=== PATIENT | female | born 1945 | race Caucasian/White ===

== ENCOUNTER → 2018-07-04 07:44 | Outpatient (CLI) | payer MEDICARE, OTHER, SELFPAY ==
--- NOTE | 2018-07-04 08:00 | US_ITS ---
US breast LT complete INDICATION: Left breast tenderness ORDERING PHYSICIAN: TARAN Brunson PATIENT AGE: 72 years COMPARISON: 09/23/2017 TECHNIQUE: Left breast ultrasound with axilla FINDINGS: There are a few dilated ducts in the retroareolar region and at 3:00. Small nodes are present in the axilla. A 4 mm cyst is present at 3:00. No suspicious solid lesions are evident. IMPRESSION: Mild ductal ectasia. Millimeters cyst at 3:00. Negative ultrasound does not exclude possibility of malignancy. Recommend mammogram for further evaluation. Patient's recent mammograms have all been at another institution and are unavailable for comparison at the time of exam BI-RADS Category: 0 Need Additional Imaging Evaluation RECOMMENDED FOLLOW-UP: IMM - IMMEDIATE FOLLOW-UP RECOMMENDED Negative ultrasound does not exclude the possibility of malignancy. Suggest mammography for further evaluation. (A letter has been sent to the patient regarding results of the study.)
== END ==
PROVIDERS: Family Provider Family Medicine; PCP Family Medicine; Visit Provider Physician Assistant
DX: N63.21 Unspecified lump in the left breast, upper outer quadrant
CPT/HCPCS: 76641

== ENCOUNTER → 2018-07-22 12:40 | Outpatient (CLI) | payer MEDICARE, OTHER, SELFPAY ==
--- NOTE | 2018-07-22 12:44 | MM_ITS ---
MM Dig mamm DX unilat LT CAD INDICATION: Left breast tenderness ORDERING PHYSICIAN: Amberly Rutledge MD PATIENT AGE: 72 years COMPARISON: 09/23/2017, 09/19/2016, 07/04/2018 TECHNIQUE: Left mammogram performed along with spot compression views of the left breast FINDINGS: There are scattered areas of asymmetric density most of which appear to compress out on spot compression views. Asymmetric density noted in the deep medial left breast and in the lateral left breast probably related to fibroglandular tissue which appears to compress out. No malignant appearing mass or malignant appearing microcalcification is evident. The areas of asymmetric density are likely related to asymmetric fibroglandular tissue There is an asymmetric density in the medial aspect of the left breast did appear to be present on previous exam of 09/19/2016 on the tomogram IMPRESSION: No malignant appearing mass or malignant appearing microcalcification. Probably benign findings BI-RADS Category: 3 Probably Benign Finding Short Term Follow-up RECOMMENDED FOLLOW-UP: 6M - 6 MONTH FOLLOW-UP (A letter has been sent to the patient regarding results of the study.)
== END ==
PROVIDERS: Family Provider Family Medicine; PCP Family Medicine; Visit Provider Family Medicine
DX: R92.8 Other abnormal and inconclusive findings on diagnostic imaging of breast (principal)
CPT/HCPCS: 77065

== ENCOUNTER 2019-04-16 11:36 | Outpatient (CLI) | payer MEDICARE, OTHER, SELFPAY ==
[2019-04-16 14:41] LABS: Alanine Aminotransferase 30 U/L (12-78); Albumin Level 3.7 gm/dL (3.4-5.0); Albumin/Globulin Ratio 1.3 (1.1-1.8); Alkaline Phosphatase 115 U/L (46-116); Anion Gap 16.3 mEq/L (5-15); Aspartate Amino Transferase 18 U/L (15-37); Bilirubin,Total 0.6 mg/dL (0.2-1.0); Blood Urea Nitrogen 9 mg/dL (7-18); Calcium 9.6 mg/dL (8.5-10.1); Carbon Dioxide 26 mmol/L (21.0-32.0); Chloride 101 mmol/L (98-107); Creatinine,Serum 0.56 mg/dL (0.55-1.02); Estimated Glomerular Filt Rate 106 ml/min (>60); GFR (African American) 128 ML/MIN (>60); Globulin 2.8 gm/dl (1.3-3.2); Glucose 87 mg/dL (74-106); Potassium 4.3 mmoL/L (3.5-5.1); Sodium 139 mmol/L (136-145); Thyroid Stimulating Hormone 1.82 uIU/ml (0.358-3.740); Total Protein,Serum 6.5 gm/dL (6.4-8.2)
[2019-04-16 15:10] VITALS: BP 126/95; PULSE 64; RESP 18; O2SAT 98
[2019-04-16 15:25] VITALS: BP 117/63; PULSE 60; RESP 18
[2019-04-19 17:22] LABS: Vitamin D 25 Hydroxy 57.4 ng/mL (30.0-100.0)
== END 2019-04-16 15:35 | disposition home or self-care (01) ==
PROVIDERS: PCP Family Medicine; Visit Provider Family Medicine
DX: E78.00 Pure hypercholesterolemia, unspecified (principal); M81.0 Age-related osteoporosis without current pathological fracture; E55.9 Vitamin D deficiency, unspecified
CPT/HCPCS: 80053; 82652; 84443; 96374; J3489

== ENCOUNTER → 2019-05-05 15:18 | Outpatient (POV) | payer MEDICARE, OTHER, SELFPAY | PROVIDERS: Visit Provider Dermatology | DX: Z00.00 Encounter for general adult medical examination without abnormal findings (principal) ==

== ENCOUNTER → 2020-04-22 08:39 | Outpatient (CLI) | payer MEDICARE, OTHER, SELFPAY ==
--- NOTE | 2020-04-22 08:44 | MM_ITS ---
PROCEDURE: MM DIG SCREENING MAMM BI W/CAD Digital Breast Tomosynthesis Included CLINICAL INDICATION: SCREENING There is a history of breast cancer patient's sister diagnosed at age 40. There has been a previous biopsy left breast for benign disease. COMPARISON: MY Digital Pancho Screen BILAT from 09/19/2016 MY Digital Screen BILAT from 09/23/2017 DXLT MM Dig mamm DX unilat LT CAD from 07/22/2018 TECHNIQUE: Standard CC and MLO images and 3D Tomosynthesis was obtained. R2 CAD reviewed. FINDINGS: Moderate diffuse fibroglandular densities are seen in both breast. There are benign-appearing calcifications in each breast. There are 2 mole markers right breast and a single mole marker left breast. There appear to be multiple tiny moles inner quadrant both breast near cleavage which were not marked with mole markers. There is a moderate-sized mole near the inframammary fold left breast which was marked on previous exams but is stable and unchanged in appearance there is no suspicious lesion in either breast and no suspicious microcalcifications. IMPRESSION: Moderate breast density with multiple moles on each breast and no suspicious lesions seen BI-RAD Category: 2 Benign Finding(s) FOLLOW-UP: 1YR 1 Year Follow-up (A letter has been sent to the patient regarding results of the study.) Dictated by: Dr. Eber Loving MD 04/22/2020 10:[address] Eber Loving MD in [place] 04/22/2020 10:55
--- NOTE | 2020-04-22 08:45 | XR_ITS ---
PROCEDURE: XR DEXA AXIAL SKELETON CLINICAL HISTORY: OSTEOPROSIS COMPARISON: No exams were available for comparison FINDINGS: The average BMD lumbar spine L1 through L4 is 1.087 grams/centimeter squared and the T-score 0.4. Right hip: The total BMD is 0.769 grams/centimeter squared with a T-score -1.4 and the right femoral neck is 0.623 grams/centimeter sq with a T-score -2.0. Left hip: The total BMD is 0.791 grams/centimeter sq with a T-score -1.2 and the left femoral neck is 0.691 grams/centimeter sq with a T-score -1.4. IMPRESSION: Normal T-score for the lumbar spine, findings in the mild to moderate osteopenia range for both hips. Consider follow-up study in approximately 2 years Dictated by: Dr. Eber Loving MD 04/22/2020 14:[address] Eber Loving MD in [place] 04/22/2020 14:26
== END ==
PROVIDERS: PCP Family Medicine; Visit Provider Family Medicine
DX: Z12.31 Encounter for screening mammogram for malignant neoplasm of breast (principal)
CPT/HCPCS: 77063; 77067; 77080

== ENCOUNTER → 2020-05-12 10:08 | Outpatient (CLI) | payer MEDICARE, OTHER, SELFPAY ==
--- NOTE | 2020-05-12 10:12 | XR_ITS ---
PROCEDURE: XR CHEST 2V CLINICAL HISTORY: CHEST PAIN COMPARISON: CXR CHEST(2 VIEWS-NOT PORTABLE) from 03/12/2016 CXR1 CHEST-PORTABLE from 05/22/2017 FINDINGS: The cardiomediastinal silhouette and pulmonary vascularity are within normal limits. The lungs are clear without infiltrates, suspicious nodules, or pleural effusions. No acute bony abnormalities. Again noted are surgical clips at the gastro esophageal junction. There minor degenerate changes of mid and lower thoracic spine. IMPRESSION: No acute findings. Dictated by: Dr. Eber Loving MD 05/12/2020 11:[address] Eber Loving MD in [place] 05/12/2020 11:28
== END ==
PROVIDERS: PCP Family Medicine; Visit Provider Family Medicine
DX: R07.9 Chest pain, unspecified (principal)
CPT/HCPCS: 71046

== ENCOUNTER 2020-06-15 09:48 | Outpatient (CLI) | payer MEDICARE, OTHER, SELFPAY ==
[2020-06-15 09:50] VITALS: BMI 29.2
[2020-06-15 10:15] LABS: Albumin Level 4.3 g/dl (3.5-5.0)
[2020-06-15 10:17] LABS: Creatinine Clearance Estimated 57 mL/min (50-200); Estimated Glomerular Filt Rate 98 ml/min (>60); GFR (African American) 118 ML/MIN (>60)
[2020-06-15 10:18] LABS: Calcium 10.1 mg/dl (8.4-10.2)
[2020-06-15 10:30] VITALS: BP 140/68; PULSE 72; RESP 18; O2SAT 98
[2020-06-15 10:50] VITALS: BP 135/65; PULSE 70; RESP 18
== END 2020-06-15 10:50 | disposition home or self-care (01) ==
LOC: INF 09:48
PROVIDERS: Visit Provider Family Medicine
DX: M81.0 Age-related osteoporosis without current pathological fracture (principal)
CPT/HCPCS: 82040; 82310; 82565; 96374; J3489

== ENCOUNTER → 2020-06-28 11:18 | Outpatient (POV) | payer MEDICARE, OTHER, SELFPAY | PROVIDERS: PCP Family Medicine; Visit Provider Dermatology | DX: Z00.00 Encounter for general adult medical examination without abnormal findings (principal) ==

== ENCOUNTER → 2020-06-29 14:09 | Outpatient (CLI) | payer MEDICARE, OTHER, SELFPAY ==
[2020-06-29 15:11] LABS: Basophils % 0.4 % (0.1-2.0); Eosinophils # 0.2 K/mm3 (0.0-0.4); Eosinophils % 2.5 % (0.1-12.0); Hematocrit 42.9 % (37.0-47.0); Lymphocytes % 45.4 % (10-50); Mean Corpuscular HGB Conc 32.7 g/dL (31.8-35.4); Mean Corpuscular Hemoglobin 29.5 pg (27.0-31.2); Mean Corpuscular Volume 90.3 fl (81-99); Mean Platelet Volume 7.9 fl (7.4-10.4); Monocytes # 0.4 K/mm3 (0.1-1.0); Monocytes % 5.5 % (1.7-9.3); Neutrophils # 3.1 K/mm3 (1.8-7.8); Neutrophils % 46.1 % (37.0-80.0); Platelet Count 189 K/mm3 (142-424); Red Blood Count 4.76 M/mm3 (4.20-5.40); Red Cell Distribution Width 13.3 % (11.5-17.5); White Blood Count 6.7 K/mm3 (4.8-10.8)
== END ==
PROVIDERS: PCP Family Medicine; Visit Provider Nurse Practitioner Family
DX: Z20.828 Contact with and (suspected) exposure to other viral communicable diseases (principal)
CPT/HCPCS: 36415; 85025; U0003

== ENCOUNTER 2020-10-26 15:23 | Emergency (ER) | payer MEDICARE, OTHER, SELFPAY ==
[2020-10-26 15:30] VITALS: BP 143/80; PULSE 80; RESP 17; TEMP 36.5; O2SAT 98; BMI 28.9
--- NOTE | 2020-10-26 15:33 | XR_ITS ---
PROCEDURE: XR RIBS RT MIN 3V W CXR1V CLINICAL INDICATION: rib fracture Right-sided chest and rib pain following injury COMPARISON: CR CXR CHEST(2 VIEWS-NOT PORTABLE) from 03/12/2016 CR CXR1 CHEST-PORTABLE from 05/22/2017 CR XR CHEST 2V from 05/12/2020 FINDINGS: There is a mildly displaced fracture involving the right 8th and 9th ribs. There is a small amount of overlying subcutaneous emphysema. No obvious pneumothorax. IMPRESSION: Mildly displaced right 8th and 9th rib fractures with overlying subcutaneous emphysema. Dictated by: Jonathan Tapia MD 10/26/2020 17:38 Jonathan Tapia MD in [place] 10/26/2020 17:38
--- NOTE | 2020-10-26 15:35 | HMH.EDFALL ---
ED Disposition Clinical Impression: Rib fracture Qualifiers: Encounter type: initial encounter Disposition: Home, Self-Care Condition on Discharge: Good Additional Instructions: Turn to the emergency department for worsening chest pain shortness of air difficulty breathing or any other concerns within the next 8 hours take incentive spirometry as instructed and pain medicine as instructed follow-up with your primary care physician within the next few days Prescriptions: Hydrocodone/Acetaminophen [[place] 5-325 Tablet] 1 each PO Q6 PRN 3 Days #12 tablet PRN Reason: Moderate Pain Transmission Status: Received by [id number] Referrals: Rashi Thomas MD [Primary Care Provider] - - Critical Care Critical Care Time: No Attestation: On , the high probability of a clinically significant, sudden or life threatening deterioration of the following system(s) required my full and direct attention, intervention and personal management. The time I documented below is in addition to time spent performing reported procedures but includes the following listed in this critical care notation. Medical Decision Making - Medical Records Medical records reviewed: Yes: I reviewed the patient's medical records. - Morgan Inquiry Pt receiving controlled substance: Yes Morgan was queried for this patient: No Reason not queried -: Morgan login issues Risks and benefits of using a controlled substance: were discussed with pt by me Vital Signs: 10/26/20 15:30 10/26/20 15:54 Temperature 97.7 F Temperature Source Oral Pulse Rate [Right Radial] 80 66 Respiratory Rate 17 20 Blood Pressure [Right Arm] 143/80 H 146/75 H Blood Pressure Mean [Right Arm] 101 98 Blood Pressure Source [Right Arm] Automatic Cuff Blood Pressure Position [Right Arm] Sitting 02 Sat by Pulse Oximetry 98 93 L Oxygen Delivery Method Room Air Room Air Orders (Tests/Meds): ED MEDICATIONS Discontinued Medications Generic Name Dose Route Start Last Admin Trade Name Freq PRN Reason Stop Dose Admin Hydrocodone Bitart/Acetaminophen 1 tab 10/26/20 15:40 10/26/20 15:48 Hydrocodone/Apap 5/325 Mg Tablet PO 10/26/20 15:41 1 tab ONCE ONE Administration ORDERS Category Date Time Status XR ribs RT min 3V w CXR1V Stat Exams 10/26/20 15:33 Taken Medical Decision Narrative: Patient with traumatic fall and right-sided chest pain. She is in no acute distress nontoxic-appearing sitting comfortably in the bed. Her vital signs were normal 100% oxygen saturation and her lungs were clear to auscultation bilaterally. I was not concerned for large for moderate-sized pneumothorax. Chest x-ray reviewed and she does have 2 rib fractures on the right side. On repeat exam she persisted being normal oxygen and no abdominal tenderness on repeat exam. Given pain medicine and incentive spirometer and strict return precautions Fall HPI - General Chief Complaint: Fall Stated Complaint: Fall 1500 back and trouble breathing Time Seen by Provider: 10/26/20 15:30 Mode of Arrival: Ambulatory Limitations: No Limitations Description of Symptoms (Recalled from ER Triage Doc. by RN): ground level fall in her basement while reaching up for a high object patient fell backward and hit her right ribs on some boxes. -loc. denies neck or back pain - History of Present Illness HPI Narrative: 74-year-old female had mechanical fall as she was in her basement and fell onto her right side while standing. She denies head injury or loss of consciousness no neck pain no numbness weakness or tingling arms or legs she does have right-sided chest wall pain when she takes a deep breath. She is not on blood thinners the pain is worse with movement and breathing MD complaint: fall Loss of consciousness: none Context: tripped/slipped Location of injury: chest Severity scale (1-10): 5 Quality: dull Associated symptoms (after fall): chest pain - Related Data Home Medica
--- NOTE | 2020-10-26 15:51 | PC.NURSE ---
pt going to xray
[2020-10-26 15:54] VITALS: BP 146/75; PULSE 66; RESP 20; O2SAT 93
[2020-10-26 17:24] VITALS: BP 140/69; PULSE 75; RESP 18; TEMP 36.5; O2SAT 99
== END 2020-10-26 17:24 | disposition home or self-care (01) ==
PROVIDERS: Emergency Provider Emergency Medicine; PCP Family Medicine
DX: S22.41XA Multiple fractures of ribs, right side, initial encounter for closed fracture; W01.0XXA Fall on same level from slipping, tripping and stumbling without subsequent striking against object, initial encounter; Y92.019 Unspecified place in single-family (private) house as the place of occurrence of the external cause; Z87.891 Personal history of nicotine dependence
CPT/HCPCS: 71101; 99282

== ENCOUNTER 2020-10-30 14:32 | Emergency (ER) | payer MEDICARE, OTHER, SELFPAY ==
[2020-10-30] VITALS (8 sets, daily range): BP systolic 157–226; BP diastolic 76–94; PULSE 71–85; RESP 17–22; TEMP 36.7–37; O2SAT 85–98; BMI 29.2
--- NOTE | 2020-10-30 14:49 | CT_ITS ---
PROCEDURE: CT ABDOMEN PELVIS W CON CLINICAL INDICATION: abd pain, constipation posttraumatic pain, recent fall with injury and pain COMPARISON: No exams were available for comparison TECHNIQUE: IV Contrast: 75ML Isovue 370 Oral Contrast None Axial images obtained with sagittal and coronal reformats. All CT scans at the facility use one or more dose reduction, viz: automated exposure control, ma/kV adjustment per patient size (including targeted exams where dose is matched to indication, i.e. head), or iterative reconstruction technique. FINDINGS: There are displaced fractures of the right eighth and 9th ribs with nondisplaced fracture of the right 10th and 7th rib with diffuse subcutaneous emphysema on the right with right-sided hemothorax, small pneumothorax, and large flank contusion on the right. This is described in the subsequent chest CT. There is right lower lobe atelectasis No evidence of hepatic laceration. The gallbladder is distended with at least 1 small gallstone noted. The spleen is unremarkable. 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 Adrenal glands are unremarkable as is the pancreas. There is mild prominence of the renal collecting system on both sides. Urinary bladder is distended. Air-fluid levels are present in both large and small bowel with a moderate amount of retained colonic feces noted. Small bowel loops are mildly distended with a few scattered air-fluid levels. The appendix is not clearly delineated. No evidence of appendicitis. IMPRESSION: 1. Multiple right-sided rib fractures with right-sided hemothorax and pneumothorax, right flank contusion and right lower lobe atelectatic change 2. Multiple fluid-filled loops of small bowel which are mildly dilated may represent ileus or obstruction. 3. Constipation 4. Cholelithiasis with distended gallbladder Dictated by: Jonathan Tapia MD 10/31/2020 06:53 Jonathan Tapia MD in [place] 10/31/2020 06:53
[2020-10-30 14:57] LABS: Microscopic, Urine URINE MICROSCOPIC (MICROSCOPIC)
[2020-10-30 15:01] LABS: Appearance,Urine CLEAR (Clear); Bilirubin,Urine Negative (Negative); Blood, Urine Negative (Negative); Color,Urine YELLOW (Yellow); Glucose,Urine (UA) Negative (Negative); Ketones,Urine Negative (Negative); Leukocyte Esterase,Urine Negative (Negative); Nitrate,Urine Negative (Negative); Protein,Urine Negative (Negative); Urobilinogen,Urine 0.2 EU/dl (0.2)
[2020-10-30 15:02] LABS: Basophils % 0.4 % (0.1-2.0); Eosinophils # 0.2 K/mm3 (0.0-0.4); Eosinophils % 1.7 % (0.1-12.0); Hematocrit 40.6 % (37.0-47.0); Hemoglobin 12.6 g/dL (12.2-16.2); Lymphocytes # 2.5 K/mm3 (0.7-4.5); Lymphocytes % 27.1 % (10-50); Mean Corpuscular Hemoglobin 28.5 pg (27.0-31.2); Mean Corpuscular Volume 91.9 fl (81-99); Mean Platelet Volume 7.6 fl (7.4-10.4); Monocytes # 0.5 K/mm3 (0.1-1.0); Monocytes % 5.4 % (1.7-9.3); Neutrophils # 6.1 K/mm3 (1.8-7.8); Neutrophils % 65.3 % (37.0-80.0); Platelet Count 215 K/mm3 (142-424); Red Blood Count 4.42 M/mm3 (4.20-5.40); Red Cell Distribution Width 13.1 % (11.5-17.5); White Blood Count 9.3 K/mm3 (4.8-10.8)
[2020-10-30 15:06] LABS: Chloride 97 mmol/L (98-107); Potassium 4.2 mmoL/L (3.5-5.1); Sodium 134 mmol/L (136-145)
[2020-10-30 15:08] LABS: Amylase 55 U/L (30-110); Blood Urea Nitrogen 9 mg/dl (7-17)
[2020-10-30 15:09] LABS: Alanine Aminotransferase 48 U/L (12-78); Albumin Level 4.4 g/dl (3.5-5.0); Albumin/Globulin Ratio 1.5 (1.1-1.8); Alkaline Phosphatase 110 U/L (38-126); Anion Gap 12.2 mEq/L (5-15); Aspartate Amino Transferase 63 U/L (14-36); Bilirubin,Total 0.7 mg/dl (0.2-1.3); Calcium 10.2 mg/dl (8.4-10.2); Carbon Dioxide 29 mmol/L (22.0-30.0); Creatinine Clearance Estimated 57 mL/min (50-200); Estimated Glomerular Filt Rate 98 ml/min (>60); GFR (African American) 118 ML/MIN (>60); Globulin 2.9 g/dL (1.3-3.2); Glucose 117 mg/dl (74-100); Lipase 115 U/L (23-300); Total Protein,Serum 7.3 g/dl (6.3-8.2)
[2020-10-30 15:27] LABS: Amorphous Sediment,Urine 1+ /lpf; Coarse Granular Casts,Urine Occasional #/lpf (0)
--- NOTE | 2020-10-30 15:49 | PC.NURSE ---
Patient going to radiology
--- NOTE | 2020-10-30 16:28 | HMH.EDGENADL ---
ED Disposition Clinical Impression: Hemothorax, Ileus Right rib fracture Qualifiers: Encounter type: initial encounter Rib fracture type: multiple ribs Fracture type: closed Qualified Code(s): S22.41XA - Multiple fractures of ribs, right side, initial encounter for closed fracture Pneumothorax Qualifiers: Pneumothorax type: traumatic Encounter type: initial encounter Qualified Code(s): S27.0XXA - Traumatic pneumothorax, initial encounter Disposition: Home, Self-Care Condition on Discharge: Fair Instructions: DI for Pneumothorax, DI for Rib Fracture, DI for Ileus Additional Instructions: Continue using your incentive spirometer. Continue using your normal bowel regimen of MiraLAX and Metamucil. Over the counter Gas-X. [place] diet. Ambulate as much as you can tolerate daily. Ibuprofen or Tylenol for pain. May use your prescription [place] for severe pain, but ibuprofen or Tylenol preferred if possible. Follow-up with Dr. Bee in his office in 2 to 3 days. Call for appointment. Return to the emergency room if severe pain, abdominal distention, vomiting, or shortness of breath. Referrals: Rashi Thomas MD [Primary Care Provider] - - Critical Care Critical Care Time: No Attestation: On 10/30/20, the high probability of a clinically significant, sudden or life threatening deterioration of the following system(s) required my full and direct attention, intervention and personal management. The time I documented below is in addition to time spent performing reported procedures but includes the following listed in this critical care notation. Medical Decision Making - Medical Records Medical records reviewed: Yes: I reviewed the patient's medical records. MR Comment: Reviewed emergency department visit and chest x-ray/rib x-ray from 10/26/2020 showing right eighth and ninth rib fractures and subcutaneous emphysema. - Morgan Inquiry Pt receiving controlled substance: No Vital Signs: 10/30/20 14:44 10/30/20 15:09 10/30/20 15:30 Temperature 98.6 F Temperature Source Oral Pulse Rate [Right Radial] 85 84 81 Respiratory Rate 17 Blood Pressure [Right Arm] 190/87 H 161/86 H 157/76 H Blood Pressure Mean [Right Arm] 121 111 103 Blood Pressure Source [Right Arm] Automatic Cuff Automatic Cuff Blood Pressure Position [Right Arm] Supine Sitting 02 Sat by Pulse Oximetry 98 96 85 L Oxygen Delivery Method Room Air Room Air 10/30/20 16:48 10/30/20 17:00 10/30/20 18:13 Temperature Temperature Source Pulse Rate [Right Radial] 79 75 79 Respiratory Rate 22 Blood Pressure [Right Arm] 166/78 H 162/84 H 157/80 H Blood Pressure Mean [Right Arm] 107 110 105 Blood Pressure Source [Right Arm] Automatic Cuff Automatic Cuff Automatic Cuff Blood Pressure Position [Right Arm] Supine Sitting Sitting 02 Sat by Pulse Oximetry 96 97 94 L Oxygen Delivery Method Room Air 10/30/20 18:30 Temperature Temperature Source Pulse Rate [Right Radial] 74 Respiratory Rate Blood Pressure [Right Arm] 226/94 H Blood Pressure Mean [Right Arm] 138 Blood Pressure Source [Right Arm] Blood Pressure Position [Right Arm] Sitting 02 Sat by Pulse Oximetry 96 Oxygen Delivery Method - Lab Data Lab Results 10/30/20 14:45: Urine Color Yellow, Urine Appearance Clear, Urine pH 7.0, Ur Specific [place] 1.010, Urine Protein Negative, Urine Glucose (UA) Negative, Urine Ketones Negative, Urine Blood Negative, Urine Nitrate Negative, Urine Bilirubin Negative, Urine Urobilinogen 0.2, Ur Leukocyte Esterase Negative, Urine RBC None, Urine WBC None, Ur Squamous Epith Cells 3-5, Amorphous Sediment 1+, Urine Bacteria None, Coarse Granular Casts Occasional 10/30/20 14:55: WBC 9.3, RBC 4.42, Hgb 12.6, Hct 40.6, MCV 91.9, MCH 28.5, MCHC 31.0 L, RDW 13.1, Plt Count 215, MPV 7.6, Neut % (Auto) 65.3, Lymph % (Auto) 27.1, [place] % (Auto) 5.4, Eos % (Auto) 1.7, Baso % (Auto) 0.4, Neut # (Auto) 6.1, Lymph # (Auto) 2.5, [place] # (Auto) 0.5, Eos # (Auto)
--- NOTE | 2020-10-30 16:45 | PC.NURSE ---
Dr Lucio speaking to [facility] at this time
--- NOTE | 2020-10-30 17:40 | CT_ITS ---
PROCEDURE: CT ANGIO CHEST CLINCIAL INDICATION: trauma Blunt trauma with injury and pain, contusion/abrasion or hematoma following injury, right-sided rib injury with pain COMPARISON: CT CT ABDOMEN PELVIS W CON from 10/30/2020 TECHNIQUE: IV Contrast: 70ML Isovue 370 Axial images obtained with sagittal and coronal reformats. All CT scans at the facility use one or more dose reduction, viz: automated exposure control, ma/kV adjustment per patient size (including targeted exams where dose is matched to indication, i.e. head), or iterative reconstruction technique. FINDINGS: No mediastinal or hilar mass. No evidence of aortic aneurysm or dissection. There are multiple right-sided rib fractures involving the right 7th 8th 9th and 10th ribs. The 8th and 9th rib fractures are displaced with some overlap of the fracture fragments. There is a small right-sided pneumothorax with atelectatic changes in the lung bases. Small right pleural effusion is evident. The the effusion is hyperdense and may be due to hemothorax. There is diffuse subcutaneous emphysema on the right. There may be a small area of contusion versus atelectatic change in the right middle lobe. Diffuse subcutaneous emphysema tracks down the right flank with contusion of the right lower lateral rib area and flank. IMPRESSION: 1. Large right-sided flank contusion with fractures of the right 7th 8th 9th and 10th ribs with displacement and overlap of the 9th and 10th rib fracture. 2. Small right-sided hemothorax with small pneumothorax and right-sided atelectasis with possible area of contusion in the right middle lobe versus atelectatic change. 3. Diffuse subcutaneous emphysema Dictated by: Jonathan Tapia MD 10/31/2020 06:47 Jonathan Tapia MD in [place] 10/31/2020 06:47
--- NOTE | 2020-10-30 18:22 | PC.NURSE ---
Dr mijares speaking with ad
--- NOTE | 2020-10-30 18:30 | PC.NURSE ---
Dr Lucio speaking with Dr Bee
== END 2020-10-30 19:31 | disposition home or self-care (01) ==
PROVIDERS: Emergency Provider Emergency Medicine; PCP Family Medicine
DX: K56.7 Ileus, unspecified (principal); S22.41XD Multiple fractures of ribs, right side, subsequent encounter for fracture with routine healing; S27.0XXD Traumatic pneumothorax, subsequent encounter; J43.9 Emphysema, unspecified; J94.2 Hemothorax
CPT/HCPCS: 71275; 74177; 80053; 81001; 82150; 83690; 85025; 96365; 99284; Q9967

== ENCOUNTER → 2020-11-01 14:36 | Outpatient (CLI) | payer MEDICARE, OTHER, SELFPAY ==
--- NOTE | 2020-11-01 14:41 | XR_ITS ---
PROCEDURE: XR CHEST 2V CLINICAL HISTORY: CLOSED FX OF MULTIPLE RIBS OF RT SIDE, TRAUMATIC PNEUMOTHORA Follow-up fractures COMPARISON: CR XR RIBS RT MIN 3V W CXR1V from 10/26/[address] ANGIO CHEST from 10/30/2020 FINDINGS: The cardiomediastinal silhouette and pulmonary vascularity are within normal limits. There are multiple right-sided rib fractures from the 7th to 10th ribs. These are much better demonstrated on the previous CT scan. The pneumothorax does appear smaller. There is a small right-sided effusion. Displaced right 8th rib fracture is noted. Other rib fractures are present but not well delineated on this exam. Surgical clips are present in the left upper quadrant. There is a small amount of subcutaneous emphysema on the right. There may be trace left effusion.. IMPRESSION: Tiny right apical pneumothorax with right-sided rib fractures as previously described and trace right-sided effusion. Dictated by: Jonathan Tapia 11/01/2020 15:41 Jonathan Tapia in [place] 11/01/2020 15:41
== END ==
PROVIDERS: PCP Family Medicine; Visit Provider Family Medicine
DX: S22.41XA Multiple fractures of ribs, right side, initial encounter for closed fracture (principal); S27.0XXA Traumatic pneumothorax, initial encounter
CPT/HCPCS: 71046

== ENCOUNTER → 2021-05-23 09:39 | Outpatient (CLI) | payer MEDICARE, OTHER, SELFPAY ==
--- NOTE | 2021-05-23 09:51 | MM_ITS ---
PROCEDURE INFORMATION: Exam: MG Screening 3D Mammography Exam date and time: 05/23/2021 9:51 AM Age: 75 years old Clinical indication: Encounter for screening mammogram for malignant neoplasm of breast TECHNIQUE: Imaging protocol: Screening tomosynthesis and 2D mammography including computer-aided detection (CAD) when performed. COMPARISON: 1. MG MM DIG SCREENING MAMM BI W/CAD 04/22/2020 8:58 AM 2. MG DXLT MM Dig mamm DX unilat LT CAD 07/22/2018 1:10 PM FINDINGS: MAMMOGRAPHY: Breast composition: The breast tissue is composed of scattered areas of fibroglandular density. Mass: None. Architectural distortion: None. Calcifications: No suspicious calcifications. Asymmetric density: None. Skin thickening: None. Axillary adenopathy: None. IMPRESSION: No mammographic evidence of malignancy. Annual screening is recommended unless otherwise clinically indicated. ASSESSMENT: BI-RADS Category 1: Negative
== END ==
PROVIDERS: PCP Family Medicine; Visit Provider Family Medicine
DX: Z12.31 Encounter for screening mammogram for malignant neoplasm of breast (principal)
CPT/HCPCS: 77063; 77067

== ENCOUNTER 2021-06-20 09:50 | Outpatient (CLI) | payer MEDICARE, OTHER, SELFPAY ==
[2021-06-20 09:56] VITALS: BMI 30.2
[2021-06-20 10:35] LABS: Albumin Level 4.3 g/dl (3.5-5.0)
[2021-06-20 10:37] LABS: Calcium 9.4 mg/dl (8.4-10.2); Creatinine Clearance Estimated 57 mL/min (50-200); Estimated Glomerular Filt Rate 97 ml/min (>60); GFR (African American) 118 ML/MIN (>60)
[2021-06-20 10:57] VITALS: BP 167/67; PULSE 75; RESP 18; TEMP 35.8; O2SAT 97
[2021-06-20 11:15] VITALS: BP 157/79; PULSE 681; RESP 18
== END 2021-06-20 11:20 | disposition home or self-care (01) ==
LOC: INF 09:55
PROVIDERS: Visit Provider Family Medicine
DX: M81.0 Age-related osteoporosis without current pathological fracture (principal)
CPT/HCPCS: 82040; 82310; 82565; 96374; J3489

== ENCOUNTER 2021-07-03 09:12 | Emergency (ER) | payer MEDICARE, OTHER, SELFPAY ==
--- NOTE | 2021-07-03 10:29 | HMH.EDUTC ---
[facility] [place] Clinical Impression: Bronchitis, Viral syndrome Sinusitis Qualifiers: Sinusitis location: unspecified location Chronicity: acute Recurrence: non-recurrent Qualified Code(s): J01.90 - Acute sinusitis, unspecified Disposition: Home, Self-Care Condition on Discharge: Good Instructions: DI for Sinusitis, DI for Acute Bronchitis Additional Instructions: Drink plenty of fluids. Take tylenol for pain or fever. Take the medications as directed. Follow up with your regular doctor. GO TO THE ER FOR ANY WORSENING SYMPTOMS Throw your tooth brush away and get a new one. Quarantine until you know the results of your covid-19 test. If it is positive, the health department should call you and give you further instructions about your length of quarantine and other thing. Prescriptions: guaiFENesin [Mucinex 600mg tablet] 1 - 2 tab PO BIDP PRN #30 tab.er.12h PRN Reason: Congestion Transmission Status: [email or web address] Benzonatate [Tessalon Perle 100mg Cap] 100 mg PO TIDP PRN #30 cap PRN Reason: Cough Transmission Status: Received by [email or web address] Azithromycin [Z-Jey 250mg Tab*] 250 mg PO UD DOSE PK #6 tab Transmission Status: Re[email or web address] Referrals: Rashi Thomas MD [Primary Care Provider] - Time of Disposition: 11:06 Medical Decision Making - Medical Records Medical records reviewed: No: I reviewed the patient's medical records. - Morgan Inquiry Pt receiving controlled substance: No Vital Signs: 07/03/21 10:45 07/03/21 11:35 Temperature 98.6 F 98.5 F Temperature Source Oral Pulse Rate 93 H Pulse Rate [Left] 96 H Respiratory Rate 20 20 Blood Pressure 000/00 L Blood Pressure [Right Arm] 161/82 H Blood Pressure Mean [Right Arm] 108 02 Sat by Pulse Oximetry 99 - Lab Data Lab results reviewed: Yes: I reviewed the patient's lab results. Lab Results 07/03/21 10:55: Strep Scn Rapid Clinic Negative Orders (Tests/Meds): ORDERS Category Date Time Status Covid-19 Nasal PCR ([facility]) Routine Lab 07/03/21 10:42 Received Strep Screen Confirmation Stat Micro 07/03/21 10:55 Received [facility] [place] HPI - General Stated complaint: cough, ear ache sore throat headache Time Seen by Provider: 07/03/21 10:29 - History of Present Illness Provider Complaint: She states that for the past 2 days she has been having left ear pain, cough, sore throat and generally feeling bad. She denies any chest pain. She has been vaccinated against covid. - Related Data Home Medications Medication Instructions Recorded Confirmed atorvastatin 40 mg tablet 40 mg PO DAILY PRN 10/25/18 04/16/19 Aspirin [Aspir 81] 81 mg PO DAILY 04/16/19 04/16/19 Trazodone HCl 50 mg PO HS 04/16/19 04/16/19 Previous Rx's Medication Instructions Recorded [id number] 10 ml PO Q4-6H PRN #240 ml 10/25/18 2 mg-30 mg-10 mg/5 mL oral syrup Azithromycin [Z-Jey 250mg Tab*] 250 mg PO UD DOSE PK #6 tab 02/24/20 Benzonatate [Tessalon Perle 100mg 100 mg PO TIDP PRN #30 cap 02/24/20 Cap] methylPREDNISolone [Medrol] 4 mg PO DIRECTED 6 Days #21 02/24/20 tab.ds.pk Hydrocodone/Acetaminophen [[place] 1 each PO Q6 PRN 3 Days #12 tab 10/26/20 5-325 Tablet] Hydrocod/Acet 5/325 mg [[place] 1 tab PO Q6HP PRN #20 tab 11/01/20 5/325mg tablet] Azithromycin [Z-Jey 250mg Tab*] 250 mg PO UD DOSE PK #6 tab 07/03/21 Benzonatate [Tessalon Perle 100mg 100 mg PO TIDP PRN #30 cap 07/03/21 Cap] guaiFENesin [Mucinex 600mg tablet] 1 - 2 tab PO BIDP PRN #30 07/03/21 tab.er.12h Allergies Allergy/AdvReac Type Severity Reaction Status Date / Time No Known Allergies Allergy Verified 10/30/20 14:48 [facility] History - Hepatitis A Screen Attestation statement:: This patient has been screened for Hepatitis A risk factors. I have reviewed the patient's past medical history: Yes Medical History: Denies:: Diabetes Mellitus Type 1, Diabetes Milagros
[2021-07-03 10:45] VITALS: BP 161/82; PULSE 96; RESP 20; TEMP 37; O2SAT 99; BMI 30.2
[2021-07-03 11:07] LABS: UTC Strep Screen (Rapid) Negative (Negative)
[2021-07-03 11:35] VITALS: BP 000/00; PULSE 93; RESP 20; TEMP 36.9
== END 2021-07-03 11:35 | disposition home or self-care (01) ==
PROVIDERS: Emergency Provider Nurse Practitioner Family; PCP Family Medicine
DX: J01.90 Acute sinusitis, unspecified (principal); B34.9 Viral infection, unspecified
CPT/HCPCS: 87880; 99203; G0463; U0003

== ENCOUNTER → 2021-07-12 14:54 | Outpatient (CLI) | payer MEDICARE, OTHER, SELFPAY ==
--- NOTE | 2021-07-12 15:03 | XR_ITS ---
PROCEDURE: XR CHEST 2V CLINICAL HISTORY: COUGH Cough COMPARISON: CR XR CHEST 2V from 05/12/2020 CR XR RIBS RT MIN 3V W CXR1V from 10/26/[address] ANGIO CHEST from 10/30/2020 CR XR CHEST 2V from 11/01/2020 FINDINGS: The cardiomediastinal silhouette and pulmonary vascularity are within normal limits. The lungs are clear without infiltrates, suspicious nodules, or pleural effusions. There are old right-sided rib fractures. Surgical clips are present in the left upper quadrant. IMPRESSION: No acute findings. Dictated by: Jonathan Tapia MD 07/12/2021 15:33 Jonathan Tapia MD in [place] 07/12/2021 15:33
== END ==
PROVIDERS: PCP Family Medicine; Visit Provider Family Medicine
DX: R05 Cough (principal)
CPT/HCPCS: 71046

== ENCOUNTER → 2021-11-07 07:47 | Outpatient (CLI) | payer MEDICARE, OTHER, SELFPAY ==
[2021-11-07 08:41] LABS: Alanine Aminotransferase 19 U/L (12-78); Albumin Level 4.2 g/dl (3.5-5.0); Albumin/Globulin Ratio 1.7 (1.1-1.8); Alkaline Phosphatase 100 U/L (38-126); Anion Gap 10.3 mEq/L (5-15); Aspartate Amino Transferase 27 U/L (14-36); Bilirubin,Total 0.5 mg/dl (0.2-1.3); Blood Urea Nitrogen 17 mg/dl (7-17); Carbon Dioxide 29 mmol/L (22.0-30.0); Chloride 103 mmol/L (98-107); Chol/HDL Ratio 1.9 (1-3.5); Cholesterol 183 mg/dl (140-200); Estimated Glomerular Filt Rate 82 ml/min (>60); GFR (African American) 99 ML/MIN (>60); Globulin 2.5 g/dL (1.3-3.2); Glucose 114 mg/dl (74-100); HDL Cholesterol 94 mg/dl (40-60); Potassium 4.3 mmoL/L (3.5-5.1); Sodium 138 mmol/L (136-145); Total Protein,Serum 6.7 g/dl (6.3-8.2); Triglycerides 53 mg/dl (30-150); VLDL Cholesterol 11 mg/dL (0-40)
[2021-11-07 08:52] LABS: Direct LDL Cholesterol 73.92 mg/dL (100-129)
[2021-11-07 08:58] LABS: 25-OH Vitamin D, Total 36.6 ng/mL (30-100)
[2021-11-07 09:12] LABS: Thyroid Stimulating Hormone 1.89 uIU/mL (0.465-4.68)
[2021-11-07 09:30] LABS: Vitamin B12 760 pg/mL (239-931)
== END ==
PROVIDERS: Visit Provider Family Medicine
DX: E78.00 Pure hypercholesterolemia, unspecified (principal); E53.8 Deficiency of other specified B group vitamins; E55.9 Vitamin D deficiency, unspecified
CPT/HCPCS: 36415; 80053; 80061; 82306; 82607; 84443

== ENCOUNTER → 2022-04-17 10:09 | Outpatient (POV) | payer MEDICARE, OTHER, SELFPAY | PROVIDERS: Visit Provider Dermatology | DX: Z00.00 Encounter for general adult medical examination without abnormal findings (principal) ==

== ENCOUNTER → 2022-05-21 13:12 | Outpatient (CLI) | payer MEDICARE, OTHER, SELFPAY ==
--- NOTE | 2022-05-21 13:16 | MM_ITS ---
PROCEDURE INFORMATION: Exam: MG Bilateral Screening 3D Mammography Exam date and time: 05/21/2022 1:24 PM Age: 76 years old Clinical indication: Screening examination. History of benign left needle biopsy. Her sister had breast cancer at age 40. TECHNIQUE: Imaging protocol: Bilateral Screening tomosynthesis and 2D mammography including computer-aided detection (CAD) when performed. COMPARISON: 1. MG MM DIG SCREENING MAMM BI W/CAD 05/23/2021 9:48 AM 2. MG MM DIG SCREENING MAMM BI W/CAD 04/22/2020 8:58 AM 3. MG DXLT MM Dig mamm DX unilat LT CAD 07/22/2018 1:10 PM 4. MG MY Digital Screen BILAT 09/23/2017 10:54 AM FINDINGS: MAMMOGRAPHY: Breast composition: There are scattered areas of fibroglandular density. Mass: No suspicious mass. Architectural distortion: None. Calcifications: No suspicious calcifications. Asymmetric density: None. Skin thickening: None. Axillary adenopathy: None. IMPRESSION: No mammographic evidence of malignancy. Annual screening is recommended unless otherwise clinically indicated. ASSESSMENT: BI-RADS Category 1: Negative
== END ==
PROVIDERS: PCP Family Medicine; Visit Provider Family Medicine
DX: Z12.31 Encounter for screening mammogram for malignant neoplasm of breast (principal)
CPT/HCPCS: 77063; 77067

== ENCOUNTER 2022-06-22 08:52 | Outpatient (CLI) | payer MEDICARE, OTHER, SELFPAY ==
[2022-06-22 08:59] VITALS: BMI 28.7
[2022-06-22 09:28] LABS: Calcium 9.6 mg/dl (8.4-10.2); Creatinine Clearance Estimated 54 mL/min (50-200); Estimated Glomerular Filt Rate 97 ml/min (>60); GFR (African American) 118 ML/MIN (>60)
[2022-06-22 09:46] VITALS: BP 149/82; PULSE 72; RESP 16; TEMP 36.4; O2SAT 99
[2022-06-22 10:20] VITALS: BP 152/80; PULSE 67; RESP 18; TEMP 36.4; O2SAT 100
== END 2022-06-22 10:25 | disposition home or self-care (01) ==
LOC: INF 08:53
PROVIDERS: PCP Family Medicine; Visit Provider Family Medicine
DX: M81.0 Age-related osteoporosis without current pathological fracture (principal)
CPT/HCPCS: 82040; 82310; 82565; 96374; J3489

== ENCOUNTER 2022-11-16 06:29 | Day surgery (SDC) | payer MEDICARE, OTHER, SELFPAY ==
[2022-11-12 13:26] VITALS: BMI 29.2
[2022-11-16 06:51] VITALS: BP 169/78; PULSE 80; RESP 18; TEMP 36.9; O2SAT 97
--- NOTE | 2022-11-16 07:14 | EXP.ANES.CKL ---
[facility] Disclaimer: The information contained in this section may have been updated after the patient was seen, as this information can be updated by other users. Medical History Depression with anxiety History of gastroesophageal reflux (GERD) History of skin cancer HLD (hyperlipidemia) Surgical History History of appendectomy History of bladder suspension procedure Hx of hysterectomy Family History Sister Family hx-breast malignancy Social History Smoking Status: Former smoker alcohol intake: never substance use type: denies use current occupational status: retired Travel in the last 8 weeks: Inside the [place] household members: none housing: house caffeine: Yes [facility] Anesthesia Checklist Patient Identification Patient Identification: Arm Band Structural Data Admitted From: Home Planned Operative Procedure/s: colonoscopy Consent for Planned Operative Procedure(s) Verified: Yes Verified Documents: Surgical Consent and History and Physical NPO Status Verified Time NPO: 00:00 Additional verifications Anesthesia Reactions: No Airway Assessment C-Spine Mobility Assessed: Yes TMJ Mobility Assessed: Yes Dentition: Good Dentition Neurological Assessment Level of Consciousness: Awake and Alert Anesthesia Plan Anesthesia Risk discussed: Yes Anesthesia Plan: Verified ASA Class: II Anesthesia Type: MAC
[2022-11-16 07:29] VITALS: O2SAT 97
[2022-11-16 08:25] VITALS: BP 127/58; PULSE 67; RESP 16; TEMP 36.1; O2SAT 97
--- NOTE | 2022-11-16 08:29 | P.PCN_ITS ---
Procedure: Date: 11/16/22 Patient Date of :: 1945 Procedure Performed:: Colonoscopy with polypectomy using snare and biopsy forceps Indications:: Patient is a 76-year-old female. She has vague family history of colon cancer and her great-grandmother. She states that she had a colonoscopy 5 years ago with polypectomy. Exact details are unknown. I do not have a record of this at this facility. She was scheduled for colonoscopy due to history of polyps. Patient is going to be going to [place] for several months. She has apparently had a colon resection in the for benign disease (possibly a polyp). Performing Provider:: Chaz Bee MD Referring Provider:: Rashi Thomas MD Sedation:: MAC sedation Procedure:: Patient history was obtained and appropriate physical examination was performed. Patient's medications and allergies were reviewed. Informed consent was obtained after explaining the benefits, alternatives, and risks of the procedure including, but not limited to, bleeding, perforation, missed lesions, and adverse reaction to anesthesia medications. Patient was transported to endoscopy procedure room. Patient was connected to monitoring devices. Throughout the procedure the patient's blood pressure, pulse, and oxygen saturations were monitored continuously. Patient identification and planned procedure were verified by the staff. Patient was positioned in lateral decubitus position. Digital anorectal exam was performed. Variable stiffness Olympus colonoscope was inserted and advanced under direct visualization to the cecum. Adequacy of the colonic prep aration was noted. The colonoscope was advanced a short distance into the terminal ileum. The colonoscope was then slowly withdrawn while carefully examining the color, texture, anatomy, and integrity of the mucosoa circumferentially. Within the rectum retroflexion was performed. Colonoscope was then withdrawn. Findings:: Colonoscope was advanced to the right colon. There was evidence of ileocolic anastomosis which was patent and intact. Colonic preparation was fair as there was some particulate liquid stool containing undigested vegetable matter and legumes throughout the colon. This was unable to be fully cleared but decent visualization was achieved with thorough irrigation and suctioning. Near the presumed hepatic flexure, just distal to the anastomosis, there was a possible subtle polyp removed with cold snare. In the transverse colon there was evidence of a possible ridge polyp which was removed with hot snare. After comp letion polypectomy Tonie ink was injected submucosally to tesfaye the area. Just distal to this there were a couple of tiny diminutive polyps removed with biopsy forceps. There were beginnings of sigmoid diverticuli. Retroflexion within the rectum revealed nonbleeding nonpathologic internal hemorrhoids. Colonoscope was withdrawn. Impression: Fair preparation Polyps as noted Recommendations:: Repeat colonoscopy pending pathology. Given fair preparation likely 2 years with 2-day prep and low residue diet. Complications:: None immediately apparent Estimated blood obtained (mL): 1
[2022-11-16 08:35] VITALS: BP 140/88; PULSE 68; RESP 16; O2SAT 95
[2022-11-16 08:45] VITALS: BP 153/90; PULSE 70; RESP 16; O2SAT 95
[2022-11-16 09:00] VITALS: BP 153/90; PULSE 70; RESP 17; O2SAT 96
== END 2022-11-16 09:00 | disposition home or self-care (01) ==
PROVIDERS: PCP Family Medicine; Visit Provider Surgery
PROC: 0DJD8ZZ Inspection of Lower Intestinal Tract, Via Natural or Artificial Opening Endoscopic (ICD-10-PCS; principal; 2022-11-16 07:30)
DX: Z12.11 Encounter for screening for malignant neoplasm of colon (principal); Z86.010 Personal history of colon polyps; Z80.0 Family history of malignant neoplasm of digestive organs; D12.3 Benign neoplasm of transverse colon
CPT/HCPCS: 45380; 45385; 88305

== ENCOUNTER → 2023-05-24 09:40 | Outpatient (CLI) | payer MEDICARE, OTHER, SELFPAY ==
--- NOTE | 2023-05-24 09:45 | MM_ITS ---
PROCEDURE INFORMATION: Exam: MG Bilateral Screening 3D Mammography Exam date and time: 05/24/2023 9:33 AM Age: 77 years old Clinical indication: Screening. Her sister had breast cancer at age 40. TECHNIQUE: Imaging protocol: Bilateral Screening tomosynthesis and 2D mammography including computer-aided detection (CAD) when performed. COMPARISON: 1. MG MM DIG SCREENING MAMM BI W/CAD 05/21/2022 1:24 PM 2. MG MM DIG SCREENING MAMM BI W/CAD 05/23/2021 9:48 AM 3. MG MM DIG SCREENING MAMM BI W/CAD 04/22/2020 8:58 AM 4. MG DXLT MM Dig mamm DX unilat LT CAD 07/22/2018 1:10 PM FINDINGS: MAMMOGRAPHY: Breast composition: There are scattered areas of fibroglandular density. Mass: No suspicious mass. Architectural distortion: None. Calcifications: No suspicious calcifications. Asymmetric density: None. Skin thickening: None. Axillary adenopathy: None. IMPRESSION: No mammographic evidence of malignancy. Annual screening is recommended unless otherwise clinically indicated. ASSESSMENT: BI-RADS Category 1: Negative
== END ==
PROVIDERS: PCP Family Medicine; Visit Provider Family Medicine
DX: Z12.31 Encounter for screening mammogram for malignant neoplasm of breast (principal)
CPT/HCPCS: 77063; 77067

== ENCOUNTER 2023-06-25 08:21 | Outpatient (CLI) | payer MEDICARE, OTHER, SELFPAY ==
[2023-06-25 08:28] VITALS: BMI 29.2
[2023-06-25 09:00] LABS: Albumin Level 4.3 g/dl (3.5-5.0)
[2023-06-25 09:03] LABS: Calcium 10.3 mg/dl (8.4-10.2); Creatinine Clearance Estimated 54 mL/min (50-200); Estimated Glomerular Filt Rate 97 ml/min (>60); GFR (African American) 117 ML/MIN (>60)
[2023-06-25 09:17] VITALS: BP 152/75; PULSE 71; RESP 18; TEMP 36.6; O2SAT 99
[2023-06-25 09:41] VITALS: BP 151/72; PULSE 74; RESP 18; O2SAT 99
== END 2023-06-25 09:41 | disposition home or self-care (01) ==
LOC: INF 08:22
PROVIDERS: PCP Family Medicine
DX: M81.0 Age-related osteoporosis without current pathological fracture (principal)
CPT/HCPCS: 82040; 82310; 82565; 96374; J3489

== ENCOUNTER 2024-03-23 10:28 | Outpatient (CLI) | payer MEDICARE, OTHER, SELFPAY ==
--- NOTE | 2024-03-23 10:35 | XR_ITS ---
FINAL REPORT CLINICAL HISTORY: CONSTIPATION, ABD DISTENSION X6 DAYS. states she has had a BM since, however still distended FINDINGS: SINGLE VIEW ABDOMEN A single view of the abdomen was obtained. There is moderate gaseous distention of the colon diffusely without significant fecal impaction. There are postoperative changes in the gastric region. IMPRESSION: Gastric distention of the colon suspicious for ileus. Reviewed, Interpreted and Dictated by Amberly Delcid MD Transcribed by Michelle Triplett Authenticated and [facility] [place] [place]
== END 2024-03-23 23:59 | disposition home or self-care (01) ==
LOC: RAD 10:30
PROVIDERS: PCP Family Medicine; Visit Provider Family Medicine
DX: K59.00 Constipation, unspecified (principal); R14.0 Abdominal distension (gaseous)
CPT/HCPCS: 74019

== ENCOUNTER 2024-05-25 10:45 | Outpatient (CLI) | payer MEDICARE, OTHER, SELFPAY ==
--- NOTE | 2024-05-25 10:49 | MM_ITS ---
PROCEDURE INFORMATION: Exam: MG Bilateral Screening 3D Mammography Exam date and time: 05/25/2024 10:40 AM Age: 78 years old Clinical indication: Screening mammogram TECHNIQUE: Imaging protocol: Bilateral Screening tomosynthesis and 2D mammography including computer-aided detection (CAD) when performed. COMPARISON: 1. MG MM DIG SCREENING MAMM BI W/CAD 05/24/2023 9:33 AM 2. MG MM DIG SCREENING MAMM BI W/CAD 05/21/2022 1:24 PM 3. MG MM DIG SCREENING MAMM BI W/CAD 05/23/2021 9:48 AM 4. MG MM DIG SCREENING MAMM BI W/CAD 04/22/2020 8:58 AM FINDINGS: MAMMOGRAPHY: Breast composition: There are scattered areas of fibroglandular density. Mass: None. Architectural distortion: No new or suspicious architectural distortion. Calcifications: Stable benign-appearing calcifications are present. No new or suspicious cluster of microcalcifications have developed. Asymmetric density: No new or suspicious asymmetric density is present Skin thickening: None. Axillary adenopathy: None. IMPRESSION: No mammographic evidence of malignancy. Recommend annual screening mammography unless otherwise clinically indicated. ASSESSMENT: BI-RADS category 2: Benign.
== END 2024-05-25 23:59 | disposition home or self-care (01) ==
LOC: RAD 10:46
PROVIDERS: PCP Family Medicine; Visit Provider Family Medicine
DX: Z12.31 Encounter for screening mammogram for malignant neoplasm of breast (principal)
CPT/HCPCS: 77063; 77067

== ENCOUNTER 2024-07-17 09:26 | Day surgery (SDC) | payer MEDICARE, OTHER, SELFPAY ==
[2024-07-16 09:46] VITALS: BMI 30.6
[2024-07-17] VITALS (7 sets, daily range): BP systolic 112–136; BP diastolic 58–99; PULSE 66–71; RESP 16–18; TEMP 36.1–36.8; O2SAT 90–100
--- NOTE | 2024-07-17 09:51 | P.PCN_ITS ---
Procedure: Date: 07/17/24 Patient Date of :: 1945 Procedure Performed:: Colonoscopy to ileocolic anastomosis with polypectomy Indications:: Patient is a 78-year-old female with somewhat of a family history of colon cancer in her great grandmother. She has apparently had a prior colon resection for apparent benign disease. I did a colonoscopy on 11/16/2022 at which time she had a tubular adenoma and 2 sessile serrated adenomas. Colonoscopy at that time revealed findings consistent with right colon resection. Colonic preparation was fair as there was undigested vegetable matter, particulate liqu id stool throughout the colon which was unable to be fully cleared. Recommendations were for repeat colonoscopy in 2 years with maximum prep. Patient presented for colonoscopy slightly sooner than planned as she had recently had episode of significant constipation a couple of months prior with 5 days of obstipation. Ultimately this resolved with taking Citrucel and MiraLAX. . Performing Provider:: Chaz Bee MD Referring Provider:: Rashi Thomas MD Sedation:: MAC sedation Procedure:: Patient history was obtained and appropriate physical examination was performed. Patient's medications and allergies were reviewed. Informed consent was obtained after explaining the benefits, alternatives, and risks of the procedure including, but not limited to, bleeding, perforation, missed lesions, and adverse reaction to anesthesia medications. Patient was transported to endoscopy procedure room. Patient was connected to monitoring devices. Throughout the procedure the patient's blood pressure, pulse, and oxygen saturations were monitored continuously. Patient identification and planned procedure were verified by the staff. Patient was positioned in lateral decubitus position. Digital anorectal exam was performed. Variable stiffness Olympus colonoscope was inserted and advanced under direct visualization to the ileocolic anastomosis. Adequacy of the colonic preparation was noted. There was a fair amount of liquid stool with some particles which was able to be suctioned free. The colonoscope was advanced a short distance into the terminal ileum. The colonoscope was then slowly withdrawn while carefully examining the color, texture, anatomy, and integrity of the mucosoa circumferentially. Within the rectum retroflexion was performed. Colonoscope was then withdrawn. There was some redundancy and floppiness of the sigmoid colon and some atony to the colon. There were findings consistent with melanosis coli. In the proximal transverse colon there was an area of previous tattooing with Tonie ink. There was noted scarring from previous polypectomy site. In the descending colon there was an adenomatous appearing polyp removed with cold snare. For hemostasis a couple of hemoclips were deployed. There was good hemostasis. There was some scattered diverticuli. At the rectosigmoid region there was a tiny diminutive hyperplastic appearing polyp removed with cold snare. There was an additional small polyp at the rectosigmoid removed with cold snare. Retroflexion within the rectum revealed no evidence of any pathologic internal hemorrhoids. . Findings:: Scattered diverticuli Melanosis coli Somewhat atonic floppy colon Polyps as noted above (2 descending polyps and 2 rectosigmoid polyps) . Recommendations:: Repeat colonoscopy pending pathology. Likely 2 or 3 years given family history and prior history of polyps with early development of polyps. Would need multi day prep. Complications:: None immediately apparent Estimated blood obtained (mL): 5 Colonoscopy Component Colonoscopy Component Was a colonoscopy performed during today's procedure?: Yes Recommended follow up colonoscopy of at least 10 years?: No If no, follow up colonoscopy recommended in ___ years?: 2-3 Reason for not recommending >/= 10 yr follow-up interval?: See above
[2024-07-17] MEDS: LACTATED RINGERS 1000ML 1,000 ML 25 ML IV (09:52)
--- NOTE | 2024-07-17 09:54 | EXP.ANES.CKL ---
[facility] Disclaimer: The information contained in this section may have been updated after the patient was seen, as this information can be updated by other users. Medical History History of gastroesophageal reflux (GERD) Depression with anxiety HLD (hyperlipidemia) History of skin cancer Surgical History History of bladder suspension procedure History of appendectomy Hx of hysterectomy Family History Sister Family hx-breast malignancy Social History (Updated 07/17/24 @ 09:51 by Luann Red RN) Smoking Status: Former smoker alcohol intake: never substance use type: denies use current occupational status: retired Travel in the last 8 weeks: None household members: none housing: house caffeine: Yes [facility] Anesthesia Checklist Patient Identification Patient Identification: Arm Band, Family and Verbal (Name & ) Structural Data Admitted From: Home Planned Operative Procedure/s: Colonoscopy Consent for Planned Operative Procedure(s) Verified: Yes Verified Documents: Surgical Consent and History and Physical NPO Status Verified Time NPO: 06:15 Chart Verification Results Verified: CBC, BMP and Chest Xray Additional verifications Patient : No Anesthesia Reactions: No Previous Colonoscopy: Yes Cardiovascular Assessment Heart Sounds: S1 & S2 Pulse Rhythm: Irregular Peripheral Edema: No Airway Assessment Mallampati Score:: Class I C-Spine Mobility Assessed: Yes (FROM demonstrated) TMJ Mobility Assessed: Yes Dentition: Good Dentition (Nothing loose per pt.) Neurological Assessment Level of Consciousness: Awake, Alert, Appropriate and Follows Commands Hx Seizures: No Numbness or tingling in extremities: No Anesthesia Plan Anesthesia Risk discussed: Yes Anesthesia Plan: Verified ASA Class: III Anesthesia Type: MAC
--- NOTE | 2024-07-17 10:50 | P.PNANES_ITS ---
[facility] Anesthesia Record Part I Anesthesia Record I Intake, IV Amount: 600 Hydration: Adequate Estimated blood loss (mL): 1 Urine output (mL): 0 Blood Products used (#): none Blood Pressure: 112/58 SaO2: 90 Pulse Rate: 71 Airway Patency: Patent Respiratory Rate: 16 Temperature: 98.3 F Patient is:: Drowsy and Stable Stable to PACU at:: 10:51
== END 2024-07-17 11:16 | disposition home or self-care (01) ==
PROVIDERS: PCP Family Medicine; Visit Provider Surgery
PROC: 0DJD8ZZ Inspection of Lower Intestinal Tract, Via Natural or Artificial Opening Endoscopic (ICD-10-PCS; CPT 45378; principal; 2024-07-17 10:30)
DX: Z12.11 Encounter for screening for malignant neoplasm of colon (principal); Z09 Encounter for follow-up examination after completed treatment for conditions other than malignant neoplasm; Z86.010 Personal history of colon polyps; Z80.0 Family history of malignant neoplasm of digestive organs; K63.89 Other specified diseases of intestine; D12.7 Benign neoplasm of rectosigmoid junction; D12.4 Benign neoplasm of descending colon; Z90.49 Acquired absence of other specified parts of digestive tract
CPT/HCPCS: 45385; J2704; J7120

== ENCOUNTER 2025-03-11 11:17 | Outpatient (CLI) | payer MEDICARE, OTHER, SELFPAY ==
--- OUTSIDE RECORDS SUMMARY | 2025-03-11 11:21 | XMS_ITS ---
Author Organization Unknown [facility] Start Date Provider Encounter for Check-up [phone] [facility]
--- NOTE | 2025-03-11 11:22 | XR_ITS ---
FINAL REPORT CLINICAL HISTORY: Lateral sided knee pain x 2 months COMPARISON: None FINDINGS: RIGHT KNEE Three views demonstrate no acute fracture or dislocation. There is mild narrowing of the medial and lateral compartment joint spaces. There is moderate chondrocalcinosis. There are moderate osteophytes along the undersurface of the patella. No acute soft tissue abnormality is seen. IMPRESSION: Mild to moderate hypertrophic changes of osteoarthritis particularly at the patellofemoral joint. Reviewed, Interpreted and Dictated by Alexis Valdovinos MD Transcribed by Mitra Velazquez Authenticated and [facility]
== END 2025-03-11 23:59 | disposition home or self-care (01) ==
LOC: RAD 11:19
PROVIDERS: PCP Family Medicine; Visit Provider Family Medicine
DX: M25.561 Pain in right knee (principal)
CPT/HCPCS: 73562

== ENCOUNTER 2025-05-12 08:58 | Outpatient (POV) | payer MEDICARE, OTHER, SELFPAY ==
--- OUTSIDE RECORDS SUMMARY | 2025-03-11 06:30 | XMS_ITS ---
[facility] Address [address] [place] [id number] Care Team Providers Care Owner Operator Name Role Phone Rashi Thomas Primary Care Provider [phone] Allergies Allergen (clinical drug ingredient) Drug/Non Drug Allergy documented on EMR Reaction Allergy Type Onset Date Status lisinopril Lisinopril cough Drug Allergy Activ e Results Component Value Reference Range Notes X ray : Knee, right Reviewed date:03/12/2025 08:29:57 AM Interpretation: Performing Lab: Notes/Report: REASON FOR VISIT knee hurting, med ckup Medications Medication SIG (Take, Route, Frequency, Duration) Notes Start Date End Date Status Atorvastatin Calcium 10 MG 1 tab(s) oral ly once a day for 90 days Active QUEtiapine Fumarate 50 MG 1 tab(s) orall y once a day (in the evening) for 90 days Active Reclast 5 MG/100ML 5 mg intravenously o nce a year 07/02/2017 Active Omeprazole 40 MG 1 cap(s) orally once a day for 90 days Active Ibuprofen 600 MG 1 tab(s) orally ever y 12 hours as needed 09/26/2017 Active Vitamin E 400 UNIT 1 cap(s) orally once a day Active amLODIPine Besylate 5 MG 1 tablet Orally Once a day Active Vitamin D3 25 MCG 1 tab(s) orally once a day for 30 day(s) Active DULoxetine HCl 30 MG 1 capsule Orally On ce a day for 30 day(s) 03/11/2025 Active Diclofenac Sodium 1 % as directed Speedometer Inspector ally four times a day as needed 03/11/2025 Activ e Contrave 8-90 MG 2 tabs Orally Two ti mes a day for 30 day(s) 03/11/2025 Active Vitamin D (Ergocalciferol) 1.25 MG (08396 UT) Take 1 capsule by mouth once a week for 90 Active Vitamin B-12 1000 MCG 2 tab(s) orally once a day OTC 0 04/22/2020 Active Irbesartan 150 MG 1 tablet Orally Once a day for 90 days 03/11/2025 Active Problems Problem Type SNOMED Code ICD Code Onset Dates Problem Status W/U Status Risk Notes Problem [id number] Essential hypertension (I10) Active confirmed Problem [id number] BMI 32.0-32.9,adult (Z68.32) Active confirmed Vital Signs Blood pressure systolic 160 mm Hg 03/11/20 25 Blood pressure diastolic 84 mm Hg 025 Heart Rate 74 /min 03/11/2025 Height 61 in 03/11/2025 Weight 173.8 lbs 03/11/2025 BMI 32.84 kg/m2 03/11/2025 Encounters Encounter Location Date Provider Diagnosis [facility] [address] [facility] [address] [place] [address], [place] [id number] 03/11/2025 Rashi Thomas Essential hypertensi on I10 ; Depression with anxiety F41.8 ; Non morbid obesity E66.9 ; Pure hypercholesterolemia E78.00 ; Vitamin D deficiency E55.9 ; Vitamin B12 deficiency E53.8 ; Age-related osteoporosis without current pathological fracture M81.0 ; Gastroesophageal reflux disease, unspecified whether esophagitis present K21.9 ; Acute pain of right knee M25.561 and BMI 32.0-32.9,adult Z68.32 Assessments Encounter Date Diagnosis (ICD Code) Assessment Notes Treatment Notes Treatment Clinical Notes Section Notes 03/11/2025 Essential hypertensi on (ICD-10 - I10) 03/11/2025 Depression with anxi ety (ICD-10 - F41.8) 03/11/2025 Non morbid obesity (ICD-10 - E66.9) 03/11/2025 Pure hypercholesterolemia (ICD-10 - E78.00) 03/11/2025 Vitamin D deficiency (ICD-10 - E55.9) 03/11/2025 Vitamin B12 deficien cy (ICD-10 - E53.8) 03/11/2025 Age-related osteopor osis without current pathological fracture (ICD-10 - M81.0) 03/11/2025 Gastroesophageal ref lux disease, unspecified whether esophagitis present (ICD-10 - K21.9) 03/11/2025 Acute pain of right knee (ICD-10 - M25.561) 03/11/2025 BMI 32.0-32.9,adult (ICD-10 - Z68.32) Plan Of Treatment Medication Medication Name Sig Start Date Stop Date Notes DULoxetine HCl 30 MG 1 capsule Orally On ce a day for 30 day(s) 03/11/2025 Diclofenac Sodium 1 % as directed Speedometer Inspector ally four times a day as needed 03/11/2025 Contrave 8-90 MG 2 tabs Orally Two ti mes a day for 30 day(s) 03/11/2025 Irbesartan 150 MG 1 tablet Orally Once a day for 90 days 03/11/2025 DULoxetine HCl 60 MG 1 cap(s) orally once a day Next Appt Details Follow Up: 4 Weeks fasting, Reason: Provider Name:Rashi Roy , 10/11/2025 10:00:00 AM, [address] [facility] [address] [facility], [address], [place], [place], [id number], Progress Notes * Roopa HOLGUINOB: (79 yo F)Acc No.[id number]:03/11/2025 Progress Notes Patient: Roopa BAIRD Provider: Santosh Thomas M.D. :1945 A ge:79 Y S ex:Female Date:03/11/2025 Address:[address] [place] [address] [place] [id number] Subjective: * Chief Complaints: * 1 . Knee hurting, med ckup. * HPI: K nee/Frost: 79 year old female presents with c/o knee pain P t complains of rt knee pain for about 2 months. Pt states she has not noticed any swelling. Pt states putting weight on knee and walking is painful. Pt has been taking Aleve Arthritis for pain. C ardiology: c/o Blood Pressure Elevated P t here to f/u on hypertension. Pt states she was seen while in [place] and was started on Amlodipine 5mg . * ROS: D ERMATOLOGY: no R brianne. n o H damien. G ASTROENTEROLOGY: no N ausea. n o V omiting. U ROLOGY: no D ifficulty urinating. n o B lood in urine. * Medical History: I nsomnia, Hyperlipidemia, Vitamin D deficiency, Colon polyps, osteoporosis, Dx: May 2017, Hemorrhoids, Basal cell carinoma, left cheek, s/p excision 2021, Constipation. * Surgical History: t ubal ligation, bilateral 1976, Hemicolectomy and gall bladder removal 1976, gastric bypass 1983, hysterectomy, total 1995, Hammer toe repair , colonoscopy: 2016, 2021 . * Hospitalization/Major Diagno stic Procedure: F all, Pneumothorax- [facility] ER 10/30/2020. * Family History: F ather: , diagnosed with Cancer. M other: . S carli: alive, diagnosed with Hypertension. C hermilo: alive. 2 sister(s) . 1 son(s) , 1 daughter(s) - healthy. .? Father - Lung Cancer. * Social History: C URRENT TOBACCO USE S moking Status: P atient does NOT smoke, F arben Smoker:?Yes Pt states that she smoked for 2 years and it was 30 years ago (2016), S econd hand smoke exposure: Y es and children. * Medications: T aking amLODIPine Besylate 5 MG Tablet 1 tablet Orally Once a day , Taking Vitamin D3 25 MCG Tablet 1 tab(s) orally once a day , Taking Vitamin E 400 UNIT Capsule 1 cap(s) orally once a day , Taking Ibuprofen 600 MG Tablet 1 tab(s) orally every 12 hours as needed , Taking Reclast 5 MG/100ML Solution 5 mg intravenously once a year , Taking Omeprazole 40 MG Capsule Delayed Release 1 cap(s) orally once a day , Taking Atorvastatin Calcium 10 MG Tablet 1 tab(s) orally once a day , Taking DULoxetine HCl 60 MG Capsule Delayed Release Particles 1 cap(s) orally once a day , Taking QUEtiapine Fumarate 50 MG Tablet 1 tab(s) orally once a day (in the evening) , Taking Vitamin B-12 1000 MCG Tablet 2 tab(s) orally once a day , Notes to Pharmacist: OTC, Taking Vitamin D (Ergocalciferol) 1.25 MG (68055 UT) Capsule Take 1 capsule by mouth once a week , Discontinued CBD OIL 2 CAP(S) ORALLY ONCE DAILY AT BEDTIME , Discontinued Calcium Citrate 250 MG Tablet 1 tab(s) orally 2 times a day , Discontinued Aspirin Adult Low Dose 81 MG Tablet Delayed Release 1 tab(s) orally once a day , Discontinued Proctosol HC 2.5 % Cream 1 cele rectally 2 times a day as needed , Medication List reviewed and reconciled with the patient * Allergies: L isinopril: cough - Side Effects. Objective: * Vitals: W t: 173.8, Temp: 98.0, BP: 160/84, HR: 74, Nurse: bassam, Ht: 61, BMI:32.84. * Examination: C ardiology: General Appearance: p leasant, NAD. HEENT: u nremarkable. Heart sounds: R RR, normal S1, S2. Lungs: c lear, no rales or wheezes. Peripheral pulses: 2 plus bilateral. ? K nee / Frost: Knee: right. Inspection: effusion: mild. Palpation: tenderness on medial jointline. Range of motion: pain at extremes of motion. ? Assessment: * Assessment: 1. E ssential hypertension - I10 (Primary) 2 . D epression with anxiety - F41.8 3 . N on morbid obesity - E66.9 4 . P ure hypercholesterolemia - E78.00 5 . V itamin D deficiency - E55.9 6 . V itamin B12 deficiency - E53.8 7 . A ge-related osteoporosis without current pathological fracture - M81.0 8 . G astroesophageal reflux disease, unspecified whether esophagitis present - K21.9 9 . A cute pain of right knee - M25.561 10. B IL 32.0-32.9,adult - Z68.32 Plan: * Treatment: 2. D epression with anxiety Stop DULoxetine HCl Capsule Delayed Release Particles, 60 MG, 1 cap(s), orally, once a day; S tart DULoxetine HCl Capsule Delayed Release Particles, 30 MG, 1 capsule, Orally, Once a day, 30 day(s), 30 Capsule, Refills 0. 3. N on morbid obesity Start Contrave Tablet Extended Release 12 Hour, 8-90 MG, 2 tabs, Orally, Two times a day, 30 day(s), 120 Tablet, Refills 5. 4. A cute pain of right knee Start Diclofenac Sodium Gel, 1 %, as directed, Externally, four times a day as needed, 200 grams, Refills 2. I maging: X ray : Knee, right (Performed Date - 03/11/2025) * Procedure Codes: G 2211 Complex e/m visit add on, 3077F SYST BP = 140 MM HG6 IT, 3079F DIAST BP 80- 89 MM HG * Follow Up: 4 Weeks fasting * Billing Information: * Visit Code: 65794 Office Visit, Est Pt., Level 4. * Procedure Codes: G2211 Complex e/m visit add on. 3077F SYST BP = 140 MM HG6 IT. 3079F DIAST BP 80-89 MM HG. * Electronic signature of Aruna Thomas MD on 05/12/2025 at 09:02 AM EDT Sign off status: Pending * Provider: Santosh Thomas M.D. Date: 0 03/11/2025 Generated for Jorge horvath/Dianne/Mitchsmitting on: 0 05/12/2025 09:02 AM EDT History and Physical Notes * HPI (History of Present Illness) Category Sub-Category Detail Notes Category Not es Cardiology Blood Pressure Elevated Pt here to f/u on hypertension. Pt states she was seen while in [place] and was started on Amlodipine 5mg Knee/Frost knee pain Pt complains of rt knee pain for about 2 months. Pt states she has not noticed any swelling. Pt states putting weight on knee and walking is painful. Pt has been taking Aleve Arthritis for pain Examination Category Sub-Category Detail Notes Category Not es Cardiology Lungs: clear, no rales or wheezes HEENT: unremarkable Heart sounds: RRR, normal S1, S2 Peripheral pulses: 2 plus bilateral General Appearance: pleasant, NAD Knee / Frost Palpation: tenderness on medial jointli ne Knee: right Inspection: effusion: mild Range of motion: pain at extremes of motion
--- OUTSIDE RECORDS SUMMARY | 2025-04-08 05:45 | XMS_ITS ---
Author Organization [facility] Address [address] [place] [id number] Care Team Providers Care Crisis Clinician Name Role Phone MarthaCherrieRashi Primary Care Provider Allergies Allergen (clinical drug ingredient) Drug/Non Drug Allergy documented on EMR Reaction Allergy Type Onset Date Status lisinopril Lisinopril cough Drug Allergy Activ e Results Component Value Reference Range Notes P-Vitamin B12 Reviewed date:04/09/2025 12:50:42 PM Interpretation:Normal Performing Lab: Notes/Report: Test performed by [facility] [address] [place] [address] , [facility] C, [place] [address] Stanley Prado MD, Kieselguhr Regenerator Operator CLIA: [id number] Vitamin B12 418 054-2265 pg/mL P-Comprehensive Metabolic Pa tika (CMP) Reviewed date:04/09/2025 12:50:58 PM Interpretation:glu 110, alk phos 122 Performing Lab: Notes/Report: Test performed by [facility] [facility] [address] [place], [place] [address]Holvi Riley [address], [place] [address] Stanley Prado MD, Kieselguhr Regenerator Operator CLIA: [id number] Sodium 139 135-145 mmol/L Potassium 4.4 3.5-5.3 [...] Interpretation:Normal Performing Lab: Notes/Report: Test performed by [facility], [address] , [facility], [place] [address] Stanley Prado MD, Kieselguhr Regenerator Operator CLIA: [id number] Cholesterol 182 <200 mg/dL Triglycerides 63 <150 [...] Interpretation:Normal Performing Lab: Notes/Report: Test performed by [facility] [address] [place] [address] , [place] [address] Stanley Prado MD, Kieselguhr Regenerator Operator CLIA: [id number] TSH reflex to FT4 2.36 0.43-5.25 mU/L P-Microalbumin/Creatinine, R andom Urine Sample Reviewed date:04/09/2025 12:50:26 PM Interpretation:Normal Performing Lab: Notes/Report: Test performed by [facility] [address] [place] [address] , [place] [address] Stalney Prado MD, Kieselguhr Regenerator Operator CLIA: [id number] Albumin/Creatinine Ratio, Urine 11 0-30 ug/m g Microalbumin, Urine, Random 0.6 Creatinine, Urine 52.2 REASON FOR VISIT 4 weeks Medications Medication SIG (Take, Route, Frequency, Duration) Notes Start Date End Date Status Diclofenac Sodium 1 % as directed Machine Deburrer ally four times a day as needed 03/11/2025 Activ e Irbesartan 150 MG 1 tablet Orally Once a day 03/11 Active QUEtiapine Fumarate 50 MG 1 tab(s) orall y once a day (in the evening) for 90 days Active Vitamin B-12 1000 MCG 2 tab(s) orally once a day OTC 0 04/22/2020 Active Vitamin D (Ergocalciferol) 1.25 MG (29595 UT) Take 1 capsule by mouth once a week for 90 Active Atorvastatin Calcium 10 MG 1 tab(s) orally once a day Active Ibuprofen 600 MG 1 tab(s) orally ever y 12 hours as needed 09/26/2017 Active Reclast 5 MG/100ML 5 mg intravenously o nce a year 07/02/2017 Active Omeprazole 40 MG 1 cap(s) orally once a day for 90 days Active Contrave 8-90 MG 2 tabs Orally Two ti mes a day 03/11/2025 Active amLODIPine Besylate 5 MG 1 tablet Orally Once a day Active Vitamin D3 25 MCG 1 tab(s) orally once a day for 30 day(s) Active Vitamin E 400 UNIT 1 cap(s) orally once a day Active Problems Problem Type SNOMED Code ICD Code Onset Dates Problem Status W/U Status Risk Notes Problem 789617559 BMI 31.0-31.9,ad ult (Z68.31) Active confirmed Vital Signs Blood pressure systolic 120 mm Hg 04/08/20 25 Blood pressure diastolic 70 mm Hg 025 Heart Rate 72 /min 04/08/2025 Height 61 in 04/08/2025 Weight 168.0 lbs 04/08/2025 BMI 31.74 kg/m2 04/08/2025 Encounters Encounter Location Date Provider Diagnosis [facility] [address] [place], [place] [phone] 04/08/2025 Rashi Thomas Essential hypertensi on I10 [...] [address], [address], [place], [id number], Progress Notes * Roopa HOLGUINEDOB: (79 yo F)Acc No.[id number]:04/08/2025 Progress Notes Patient: Roopa BAIRD Provider: Santosh Thomas M.D. :1945 A ge:79 Y S ex:Female Date:04/08/2025 Address:[address] [place] [address] , [place]-[id number] Subjective: * Chief Complaints: * 1 . [...] Hospitalization/Major Diagno stic Procedure: F all, Pneumothorax- [facility] ER 10/30/2020. * Family History: F ather: [...] OTC, Taking Vitamin D (Ergocalciferol) 1.25 MG (00992 UT) Capsule Take 1 capsule by mouth [...] Lungs: c lear, no rales or wheezes. Extremities: n o leg edema. Peripheral pulses: 2 plus bilateral. ? Assessment: * Assessment: 1. E ssential hypertension - I10 (Primary) 2 . D epression with anxiety - F41.8 3 . P ure hypercholesterolemia - E78.00 4 . V itamin B12 deficiency - E53.8 5 . N on morbid obesity - E66.9 6 . B IL 31.0-31.9,adult - Z68.31 Plan: * Treatment: Value [...] 12: 10:01 PM > labs are all satisfactoryHouSelma chester 04/09/2025 12:50:54 PM >pt informed ?LAB: P-Lipid [...] 12: 10:01 PM > labs are all satisfactoryHou Selma 04/09/2025 12:50:46 PM >pt informed ?LAB: P-TSH reflex to FT4 (Collection Date & Time - 04/08/2025 09:01 AM)? Normal* Value Reference Range T SH reflex to FT4 2.36 0.43-5.25 - mU/L * Judy Johns 04/09/2025 12: 10:01 PM > labs are all satisfactoryHouSelma 04/09/2025 12:50:30 PM >pt informed 4.?Vitamin B12 deficiency?LAB: P-Vitamin B12 (Collection Date & Time - 04/08/2025 09:01 AM)?Normal* Value Reference Range V itamin B12 580 146-5842 - pg/mL * Judy Johns 04/09/2025 12: 10:01 PM > labs are all satisfactoryHou Selma 04/09/2025 12:50:38 PM >pt informed 5.?Non morbid obesity? Continue Contrave Tablet Extended Release 12 Hour, 8-90 MG, 2 tabs, Orally, Two times a day.? * Procedure Codes: G 2211 Complex e/m visit add on, 3074F SYST BP LT 130 MM HG, 3078F DIAST BP < 80 MM HG * Follow Up: 6 Months * Billing Information: * Visit Code: 27335 Office Visit, Est Pt., Level 4. * Procedure Codes: G2211 Complex e/m visit add on. 3074F SYST BP LT 130 MM HG. 3078F DIAST BP < 80 MM HG. * Electronic signature of Aruna Thomas MD on 05/12/2025 at 09:02 AM EDT Sign off status: Pending * Provider: Santosh Thomas M.D. Date: 0 04/08/2025 Generated for Jorge horvath/Dianne/eTransmitting on: 0 05/12/2025 09:02 AM EDT History [...]
--- OUTSIDE RECORDS SUMMARY | 2025-05-12 09:03 | XMS_ITS | Patient Health Record ---
Author Organization [facility] Address [address] [facility] [address] [place] [id number] Care Team Providers Care Merchandising Professor Name Role Phone Rashi Thomas Primary Care Provider Kimo Ballard [phone] Allergies Allergen (clinical drug ingredient) Drug/Non Drug Allergy documented on EMR Reaction Allergy Type Onset Date Status lisinopril Lisinopril cough Drug Allergy Activ e Results Component Value Reference Range Notes X ray : Knee, right Reviewed date:03/12/2025 08:29:57 AM Interpretation: Performing Lab: Notes/Report: P-Vitamin B12 Reviewed date:04/09/2025 12:50:42 PM Interpretation:Normal Performing Lab: Notes/Report: Test performed by [facility] [address] [place] [address] , [address], [place] [address] Stanley Prado MD, Gear Shaper Set Up Operator CLIA: [id number] Vitamin B12 558 523-3275 pg/mL P-Comprehensive Metabolic Pa tika (CMP) Reviewed date:04/09/2025 12:50:58 PM Interpretation:glu 110, alk phos 122 Performing Lab: Notes/Report: Test performed by [facility] [address] [place] [address] , [address], [place] [address] Stanley Prado MD, Gear Shaper Set Up Operator CLIA: [id number] Sodium 139 135-145 mmol/L Potassium 4.4 3.5-5.3 [...] Interpretation:Normal Performing Lab: Notes/Report: Test performed by [facility], [address] , [place] [address] Stanley Prado MD, Gear Shaper Set Up Operator CLIA: [id number] Cholesterol 182 <200 mg/dL Triglycerides 63 <150 [...] ATPIII guidelines LDL/HDL Ratio 1.1 <3.3 Ratio ____ LDL Cholesterol Patient History ____ Test Date: 09/09/2024 LDL Results: 95 Units: mg/dL % Change: - ---- Test Date: 04/08/2025 LDL Results: 87 Units: mg/dL % Change: -8% ____ P-TSH reflex to FT4 Reviewed date:04/09/2025 12:50:34 PM Interpretation:Normal Performing Lab: Notes/Report: Test performed by [facility] [address] [place] [address] , Suite , [place] [address] Stanley Prado MD, Gear Shaper Set Up Operator CLIA: [id number] TSH reflex to FT4 2.36 0.43-5.25 mU/L P-Microalbumin/Creatinine, R andom Urine Sample Reviewed date:04/09/2025 12:50:26 PM Interpretation:Normal Performing Lab: Notes/Report: Test performed by [facility] [address] [place] [address] , [address], [place] [address] Stanley Prado MD, Gear Shaper Set Up Operator CLIA: [id number] Albumin/Creatinine Ratio, Urine 11 0-30 ug/mg Microalbumin, Urine, Random 0.6 Creatinine, Urine 52.2 P-Vitamin B12 Reviewed date:10/29/2024 08:30:57 AM Interpretation: Performing Lab: Notes/Report: Test performed by [facility] [address] [place] [address] , [address], [place] [address] Stanley Prado MD, Gear Shaper Set Up Operator CLIA: [id number] Vitamin B12 148 615-8044 pg/mL Mammogram Reviewed date:05/29/2024 09:35:58 AM Interpretation:Negative, annual f/u Performing Lab: Notes/Report: Negative, annual f/u result Negative, annual f/u P-Vitamin B12 Reviewed date:09/10/2024 10:21:00 AM Interpretation:259 Performing Lab: Notes/Report: Test performed by [facility] [address] [place] [address] , [address], [place] [address] Stanley Prado MD, Gear Shaper Set Up Operator CLIA: [id number] Vitamin B12 201 768-1940 pg/mL P-Comprehensive Metabolic Pa tika (CMP) Reviewed date:09/10/2024 10:21:00 AM Interpretation:gluc 108, alk phos 124 Performing Lab: Notes/Report: Test performed by [facility] [address] [place] [address] , [address], [place] [address] Stanley Prado MD, Gear Shaper Set Up Operator CLIA: [id number] Sodium 139 135-145 mmol/L Potassium 4.8 3.5-5.3 mmol/L Chloride 102 97-108 mmol/L CO2 26 22-32 mmol/L Glucose 108 65-99 mg/dL BUN 11 8-23 mg/dL Creatinine 0.70 0.50-1.00 mg/dL Calcium 10.1 8.6-10.4 mg/dL eGFR by Creatinine 88 >59 mL/min/1.73m2 Protein 7.0 6.0-8.3 g/dL Albumin 4.6 3.5-5.3 g/dL Alkaline Phosphatase 124 35-121 IU/L ALT (SGPT) 14 <5-47 IU/L AST (SGOT) 18 <5-40 IU/L Bilirubin, Total 0.7 <0.2-1.2 mg/dL A/G Ratio 1.9 1.1-2.5 P-Lipid Panel Reviewed date:09/10/2024 10:21:00 AM Interpretation:chol 205 Performing Lab: Notes/Report: Test performed by [facility] [address] [place] [address] , [address], [place] [address] Stanley Prado MD, Gear Shaper Set Up Operator CLIA: [id number] Cholesterol 205 <200 mg/dL Triglycerides 56 <150 mg/dL HDL Cholesterol 99 >39 mg/dL Cholesterol / HDL Ratio 2.07 0.00-4.44 Ratio Non-HDL Cholesterol 106 <130 mg/dL LDL Cholesterol (Calculation) 95 <130 mg/dL LDL Cholesterol Levels* Less than 100 mg/dL Optimal 100 to 129 mg/dL Near Optimal/ Above Optimal 130 to 159 mg/dL Borderline High 160 to 189 mg/dL High 190 mg/dL and above Very High * Categories as recommended by the 2004 ATPIII guidelines LDL/HDL Ratio 1.0 <3.3 Ratio ____ LDL Cholesterol Patient History ____ Test Date: 09/09/2024 LDL Results: 95 Units: mg/dL % Change: - ____ P-TSH reflex to FT4 Reviewed date:09/10/2024 10:21:00 AM Interpretation: Normal Performing Lab: Notes/Report: Test performed by [facility] [address] [place] [address] , [place] [address] Stanley Prado MD, Gear Shaper Set Up Operator CLIA: [id number] TSH reflex to FT4 1.63 0.43-5.25 mU/L P-Vitamin D 25-Hydroxy Reviewed date:09/10/2024 10:21:00 AM Interpretation: Normal Performing Lab: Notes/Report: Test performed by [facility] [address] , [place] [address] Stanley Prado MD, Gear Shaper Set Up Operator CLIA: [id number] Vitamin D 25-Hydroxy 50.9 30.0-100.0 ng/mL Interpretation of Vitamin D 25 [place]: < 20 ng/mL - Deficiency 20 - 29 ng/mL - Insufficiency 30 - 100 ng/mL - Sufficiency > 100 ng/mL - Super-therapeutic- toxicity may occur above this level. Clinical correlation required. Reason For Referral Diagnosis 1 Arthritis of knee, r ight (M17.11) Referral Organization [facility] Referring Provider First Name Rashi Referring Provider Last Name Martha Referring Provider Speciality Family Pra ctice Referred Provider Fernando Aranda Referred Provider Specialty Orthopedic S urgery General Notes Katie Ruth 2024 10:27:26 AM > 03/25/2025 at 10:15am; patient informed Referral Priority Routine Medications Medication SIG (Take, Route, Frequency, Duration) Notes Start Date End Date Status Contrave 8-90 MG 2 tabs Orally Two ti mes a day 03/11/2025 Active amLODIPine Besylate 5 MG 1 tablet Orally Once a day Active Vitamin D3 25 MCG 1 tab(s) orally once a day for 30 day(s) Active Diclofenac Sodium 1 % as directed Enterprise Solutions Architect ally four times a day as needed 03/11/2025 Activ e Vitamin E 400 UNIT 1 cap(s) orally once a day Active Ibuprofen 600 MG 1 tab(s) orally ever y 12 hours as needed 09/26/2017 Active Reclast 5 MG/100ML 5 mg intravenously o nce a year 07/02/2017 Active Omeprazole 40 MG 1 cap(s) orally once a day for 90 days Active Irbesartan 150 MG 1 tablet Orally Once a day 03/11 Active QUEtiapine Fumarate 50 MG 1 tab(s) orall y once a day (in the evening) for 90 days Active Atorvastatin Calcium 10 MG 1 tab(s) oral ly once a day for 90 days Active Vitamin B-12 1000 MCG 2 tab(s) orally once a day OTC 0 04/22/2020 Active Vitamin D (Ergocalciferol) 1.25 MG (12132 UT) Take 1 capsule by mouth once a week for 90 Active Immunizations Vaccine Route Administration Date Status Comme nts COVID 19 Moderna Unknown 06/27/2022 Administered COVID 19 Pfizer Unknown 12/29/2020 Administered COVID 19 Pfizer Unknown 01/20/2021 Administered COVID 19 Pfizer Unknown 07/26/2021 Administered Fluzone High Dose (65yr and older) Unknown 09/19/2017 Administered Fluzone High Dose (65yr and older) IM Intramuscular 09/08/2019 Administered Fluzone High Dose (65yr and older) IM Intramuscular 10/10/2023 Administered Fluzone High Dose (65yr and older) IM Intramuscular 09/09/2024 Administered PNEUMOVAX 23 VACCINE IM Intramuscular 09/08/2019 Administe red Prevnar (PCV13) IM Intramuscular 06/14/2017 Administered Prevnar (PCV20) IM Intramuscular 10/29/2022 Administered Tetanus Tdap-Adacel (over 7yrs) IM Intramuscular 06/14/2017 Administered Problems Problem Type SNOMED Code ICD Code Onset Dates Problem Status W/U Status Risk Notes Problem 70460916 Vitamin D defici ency (E55.9) Active confirmed Problem 363314665 Vitamin B12 deficiency (E53.8) Active confirmed Problem 83745571 Hypercalcemia (E83.52) Active confirmed Problem 61893333 Essential hypertension (I10) Active confirmed Problem 933736185 Depression with anxiety (F41.8) Active confirmed Problem 215698609 BMI 32.0-32.9,ad ult (Z68.32) Active confirmed Problem Memory loss (10331095) Memory loss (R41.3) Active confirmed Problem 6066414 Primary insomnia (F51.01) Active confirmed Problem 67565528 Age-related osteoporosis without current pathological fracture (M81.0) Active confirmed Problem Abnormal findings on diagnostic imaging of breast (559341090) Other abnormal and inconclusive findings on diagnostic imaging of breast (R92.8) Active confirmed Problem 228558058 History of colon polyps (Z86.010) Active confirmed Problem 60308026 Constipation, unspecified constipation type (K59.00) Active confirmed Problem Osteoporosis (64457809) Osteoporosis (M81.0) Active confirmed Problem 40766938 Adjustment disor duarte with anxious mood (F43.22) Active confirmed Problem 484453031 BMI 31.0-31.9,ad ult (Z68.31) Active confirmed Problem Pure hypercholesterolemia (131213482) Pure hypercholesterolemia (E78.00) Active confirmed Problem 80084967 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) Active confirmed Problem 497372013 Non morbid obesi ty (E66.9) Active confirmed Problem 9150360583251637 Arthritis of kn ee, right (M17.11) Active confirmed Problem 12217693 Pica 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) Active confirmed Problem 256884688 Gastroesophageal reflux disease, unspecified whether esophagitis present (K21.9) Active confirmed Vital Signs Heart Rate 72 /min 04/08/2025 Blood pressure diastolic 70 mm Hg 04/08/2025 Height 61 in 04/08/2025 Blood pressure systolic 120 mm Hg 04/08/2025 Weight 168.0 lbs 04/08/2025 BMI 31.74 kg/m2 04/08/2025 Encounters Encounter Location Date Provider [facility] [address] [place], [place] [id number] 09/09/2024 Rashi [place] Pure hypercholestero lemia E78.00 ; Vitamin D deficiency E55.9 ; Primary insomnia F51.01 ; Vitamin B12 deficiency E53.8 ; Depression with anxiety F41.8 ; Encounter for immunization Z23 and Non morbid obesity E66.9 [facility] [address] [facility] [address] [place], [place] [id number] 10/28/2024 Kimo Ballard Vitamin B12 deficien cy E53.8 [facility] [address] [place], [place] [id number] 03/11/2025 Rashi [place] Essential hypertensi on I10 ; Depression with anxiety F41.8 ; Non morbid obesity E66.9 ; Pure hypercholesterolemia E78.00 ; Vitamin D deficiency E55.9 ; Vitamin B12 deficiency E53.8 ; Age-related osteoporosis without current pathological fracture M81.0 ; Gastroesophageal reflux disease, unspecified whether esophagitis present K21.9 ; Acute pain of right knee M25.561 and BMI 32.0-32.9,adult Z68.32 [facility] [address] [facility] [address] [place], [place] [id number] 04/08/2025 Rashi [place] Essential hypertensi on I10 ; Depression with anxiety F41.8 ; Pure hypercholesterolemia E78.00 ; Vitamin B12 deficiency E53.8 ; Non morbid obesity E66.9 and BMI 31.0-31.9,adult Z68.31 [facility] [address] [place], [place] [id number] 09/10/2024 Rashi [place] Vitamin B12 deficien cy E53.8 [facility] [address] [place], [place] [id number] 03/12/2025 Rashi [place] Acute pain of right knee M25.561 and Arthritis of knee, right M17.11 [facility] [address] [facility] [address] [place], [place] [id number] 04/08/2025 Rashi [place] Assessments Encounter Date Diagnosis (ICD Code) Assessment Notes Treatment Notes Treatment Clinical Notes Section Notes 09/09/2024 Vitamin D deficiency (ICD-10 - E55.9) 09/10/2024 Vitamin B12 deficien cy (ICD-10 - E53.8) 09/09/2024 Pure hypercholesterolemia (ICD-10 - E78.00) 03/11/2025 Essential hypertensi on (ICD-10 - I10) 03/11/2025 Depression with anxi ety (ICD-10 - F41.8) 03/12/2025 Acute pain of right knee (ICD-10 - M25.561) 03/12/2025 Arthritis of knee, r ight (ICD-10 - M17.11) 04/08/2025 Essential hypertensi on (ICD-10 - I10) 04/08/2025 Depression with anxi ety (ICD-10 - F41.8) 04/08/2025 Pure hypercholesterolemia (ICD-10 - E78.00) 03/11/2025 Non morbid obesity (ICD-10 - E66.9) 10/28/2024 Vitamin B12 deficien cy (ICD-10 - E53.8) 09/09/2024 Primary insomnia (IC D-10 - F51.01) 09/09/2024 Vitamin B12 deficien cy (ICD-10 - E53.8) 03/11/2025 Pure hypercholesterolemia (ICD-10 - E78.00) 04/08/2025 Vitamin B12 deficien cy (ICD-10 - E53.8) 04/08/2025 Non morbid obesity (ICD-10 - E66.9) 03/11/2025 Vitamin D deficiency (ICD-10 - E55.9) 09/09/2024 Depression with anxi ety (ICD-10 - F41.8) 03/11/2025 Vitamin B12 deficien cy (ICD-10 - E53.8) 09/09/2024 Encounter for immunization (ICD-10 - Z23) 04/08/2025 BMI 31.0-31.9,adult (ICD-10 - Z68.31) 03/11/2025 Age-related osteopor osis without current pathological fracture (ICD-10 - M81.0) 09/09/2024 Non morbid obesity (ICD-10 - E66.9) diet & exercise reviewed with patient 03/11/2025 Gastroesophageal ref lux disease, unspecified whether esophagitis present (ICD-10 - K21.9) 03/11/2025 Acute pain of right knee (ICD-10 - M25.561) 03/11/2025 BMI 32.0-32.9,adult (ICD-10 - Z68.32) Plan Of Treatment Pending Test Test Name Order Date colonoscopy 04/07/2024 Next Appt Details Provider Name:Rashi Roy ry, 10/11/2025 10:00:00 AM, [address], [place], [place], [id number], Insurance Providers Payer Name Payer Address Payer Phone Subscriber Number Group Number Insured Name Patient Relationship to Insured Coverage Start Date Coverage End Date MEDICARE PART B [address] [address] [place] [address] [id number] Roopa HOLGUIN Self - patient is the insured [employer] SUPPLEMENT [address] [address] [place], [place] [id number] EZIO Roopa Self - patient is the insured Medical (General) History Medical History History ICD Code insomnia hyperlipidemia Vitamin D deficiency Colon polyps osteoporosis, Dx: May 2017 hemorrhoids Basal cell carinoma, left cheek, s/p exc ision 2021 constipation Surgical History Surgery Date(Month/Year) tubal ligation, bilateral 1977 Hemicolectomy and gall bladder removal 1 977 gastric bypass 1984 hysterectomy, total 1995 Hammer toe repair colonoscopy: 2021 Hospitalization History Reason Date(Month/Year) Fall, Pneumothorax- [facility] ER 10/30/2020
[2025-05-12 09:35] VITALS: BP 134/74; PULSE 74; RESP 18; O2SAT 97; BMI 32.1
--- NOTE | 2025-05-12 09:47 | A.OFFVIS_ITS ---
HPI Data of Consult Patient: new to practice Consult date: 05/12/25 Requesting Physician: Marisa Aranda APRN Primary Care Provider: Rashi Thomas MD Reason for consult: Right knee pain History of present illness: Ms. Kumar is a 79 year old female who presents today as a new patient. She is a referral from [facility]. Today she rates her pain a 6 out of 10. Patient states that overall she is relatively healthy for her age however has been having chronic right knee pain for at least 3 to 4 months unrelated to any specific trauma or injury. She does describe it as an aching, throbbing sensation that is worse with increased activity. Patient does have swelling and has trouble bending that joint. Patient has been to see orthopedics who did do steroid injection inside the joint however only lasted about 2 to 3 days of relief. Patient states that they did discuss the possibility of an RFA with our office. Patient has tried oral medications such as ibuprofen, heat and ice, topicals such as Voltaren with minimal changes. Patient denies any other injections or surgery on this joint. Patient is very active and exercises on a daily basis with no additional changes. Patient is interested in any help we may be able to provide as it is interfering with her ability perform activities of daily living such as cooking and cleaning. Patient denies any heart or kidney issues. Her Morgan has been reviewed and is appropriate. Pain at rest (0-10 scale): 6 Has patient had previous pain injection?: No Conservative treatment options previously tried: NSAIDS (Longer than 12 weeks) and Home exercise plan (Longer than 12 weeks) cc:: CC: Marisa Aranda APRN [facility] Disclaimer: The information contained in this section may have been updated after the patient was seen, as this information can be updated by other users. Medical History History of gastroesophageal reflux (GERD) Depression with anxiety HLD (hyperlipidemia) History of skin cancer Surgical History History of colonoscopy History of bladder suspension procedure History of appendectomy Hx of hysterectomy Family History Sister Family hx-breast malignancy Social History (Updated 06/18/25 @ 09:36 by Marixa Perez RN) Smoking Status: Former smoker alcohol intake: never substance use type: denies use current occupational status: retired Travel in the last 8 weeks?: None household members: none housing: house caffeine: Yes Review of Systems Review of Systems Review of systems:: pertinent systems reviewed and negative unless documented below Review of systems (narrative): Review of Systems: General: No recent weight changes, no fever, no sleep disturbances Respiratory: No cough, no shortness of air, no recurring pulmonary infections Cardiovascular/peripheral vascular: No chest pain, no palpitations, no edema, no shortness of breath Gastrointestinal: No new onset incontinence, normal bowel movements reported Genitourinary: No new onset incontinence Musculoskeletal: Right knee pain Psychiatric: [Normal mood/affect] Neurological: [Denies weakness in extremities], [denies balance issues] Meds Home Medications and Allergies Home Medications ?Medication ?Instructions ?Recorded ?Confirmed ?Type atorvastatin 40 mg tablet 40 mg PO DAILY Cholesterol 1 12/26/17 05/12/25 History aspirin 81 mg tablet,delayed 81 mg PO DAILY heart heal th 04/16/19 05/12/25 History release cyanocobalamin (vitamin B-12) 1 tab PO DAILY Supplemen t 06/22/22 05/12/25 History 2,500 mcg tablet duloxetine 60 mg capsule,delayed 60 mg PO DAILY Depres abhijit 06/22/22 05/12/25 History release (Cymbalta) ergocalciferol (vitamin D2) 1,250 1,250 mcg PO DAILY S upplement 06/22/22 05/12/25 History mcg (50,000 unit) capsule omeprazole 40 mg capsule,delayed 40 mg PO DAILY GERD 0 06/22/22 05/12/25 History release quetiapine 50 mg tablet (Seroquel) 25 mg PO HS sleep 0 06/22/22 05/12/25 History vitamin E (dl, acetate) 180 mg 180 mg PO DAILY Supplem ent 06/22/22 05/12/25 History (400 unit) capsule New Prescriptions to Start Prescriptions: Allergies Allergy/AdvReac Type Severity Reaction Status Date / Time No Known Allergies Allergy Verified 04/14/25 14:13 Objective Vital signs: Pulse Resp BP Pulse Ox O2 Del Method 74 18 134/74 97 Room Air 05/12/25 09:35 05/12/25 09:35 05/12/25 09:35 05/12/25 09:35 05/12/25 09:35 Narrative: Physical Exam: General: Alert and oriented x3, no acute distress, pleasant and cooperative Lungs: Respirations even and unlabored, symmetrical chest expansion Eyes: PERRL Musculoskeletal: Flexion and extension of right knee somewhat guarded secondary to pain, [antalgic gait noted] tenderness with palpation around the medial aspect and mild swelling noted during today's visit Neurological: Speech clear, no gross sensory deficit Additional findings Additional findings: FINDINGS: RIGHT KNEE Three views demonstrate no acute fracture or dislocation. There is mild narrowing of the medial and lateral compartment joint spaces. There is moderate chondrocalcinosis. There are moderate osteophytes along the undersurface of the patella. No acute soft tissue abnormality is seen. IMPRESSION: Mild to moderate hypertrophic changes of osteoarthritis particularly at the patellofemoral joint. Reviewed, Interpreted and Dictated by Alexis Valdovinos MD Transcribed by Mitra Velazquez Authenticated and [facility] Assessment and Plan *Assessment and plan (1) Osteoarthritis of right knee: Status: Acute Category: Medical Code(s): M17.11 - Unilateral primary osteoarthritis, right knee Plan Patient is experiencing significant pain in her right knee with limited range of motion. Patient did also have point tenderness with palpation and mild swelling noted at today's visit. I did discuss with patient that I do believe she would benefit from a infrapatellar nerve block. Risk and benefits were discussed with patient and she would like to proceed forward with this plan of care. Patient has tried and failed conservative therapy including oral medications, heat and ice, topicals, at home stretching exercise for longer than 12 weeks that was physician guided. Patient has been to see orthopedics and they are recommending conservative treatments. I will order the patient compounded cream and also send in a 2-week dose of diclofenac 50 mg twice daily. Patient was counseled to discontinue all other NSAIDs while taking this medication and to take it with food to minimize GI upset. Patient agrees with this plan of care. Patient will be scheduled for a right knee infrapatellar nerve block. This will be done with out fluoroscopic or ultrasound guidance. Patient has been instructed to contact the clinic with any concerns before the next appointment. Dr. Desai has reviewed this note and agrees with this plan of care. This note was dictated using voice recognition software and make contain errors or omissions. All injections are used with Lidocaine, Bupivacaine and dexamethasone. Occasionally urine drug screen is needed to verify patient's compliance with our office pain contract. This is ordered based off specific treatments related to chronic pain with the potential to abuse certain medications.
== END 2025-05-12 23:59 | disposition home or self-care (01) ==
PROVIDERS: PCP Family Medicine; Visit Provider Nurse Practitioner Family
DX: M17.11 Unilateral primary osteoarthritis, right knee (principal); Z79.1 Long term (current) use of non-steroidal anti-inflammatories (NSAID)
CPT/HCPCS: 99202; G0463

== ENCOUNTER 2025-06-01 08:02 | Day surgery (SDC) | payer MEDICARE, OTHER, SELFPAY ==
[2025-06-01 08:16] VITALS: BP 141/77; PULSE 72; RESP 18; O2SAT 99; BMI 33.2
[2025-06-01] MEDS: BUPIVACAINE 0.25% 10ML INJ 25 MG IJ (08:53)
[2025-06-01] MEDS: DEXAMETHASONE 10MG/ML 1ML VIAL 10 MG (08:53)
[2025-06-01] MEDS: LIDOCAINE 1% 5ML PF VIAL 5 ML (08:53)
[2025-06-01 08:54] VITALS: BP 162/79; PULSE 80; RESP 18; O2SAT 97
--- NOTE | 2025-06-01 08:54 | EXP.PAIN.PRO ---
Procedure Date: 06/01/25 Time: 08:45 Anesthesiologist:: Osvaldo Lazaro CRNA Complications:: None Pre-procedure Diagnosis:: DJD right knee. Chronic right knee pain. Post-procedure Diagnosis:: Same. Indications for Procedure:: Patient is a pleasant 79-year-old female comes our clinic today for right knee infrapatellar nerve block. Patient describes right knee pain as constant, dull, aching. She reports difficulty with ambulation due to right knee pain. Difficulty with flexion and extension of the right knee. Difficulty with stairs. She rates her pain 7/10. Procedure Details:: Details of the procedure explained to the patient. The patient taken procedure and placed in the sitting position. The over the right knee was cleaned using chlorhexidine as a cleansing solution. Using a 25-gauge inch and half needle the right infrapatellar branch of the saphenous nerve was accessed with ease. After negative aspiration 4 cc of 1% lidocaine +4 cc of 0.25% Marcaine and 10 mg of dexamethasone was injected incrementally. Patient tolerated procedure without difficulty. Dental complications. Plan and Disposition:: Patient was reevaluated 5 minutes post procedure. Patient reports 90% improvement terms of her overall right knee pain. Patient was discharged without incident.
[2025-06-01 08:56] VITALS: BP 162/79; PULSE 80; RESP 18; O2SAT 97
[2025-06-01 09:02] VITALS: BP 136/61; PULSE 77; RESP 18; O2SAT 98
== END 2025-06-01 09:02 | disposition home or self-care (01) ==
PROVIDERS: PCP Family Medicine; Visit Provider Nurse Anesthetist, Certified Registered
DX: M17.11 Unilateral primary osteoarthritis, right knee (principal); F41.8 Other specified anxiety disorders; K21.9 Gastro-esophageal reflux disease without esophagitis; E78.5 Hyperlipidemia, unspecified; Z85.828 Personal history of other malignant neoplasm of skin; Z87.891 Personal history of nicotine dependence; Z79.82 Long term (current) use of aspirin; Z79.899 Other long term (current) drug therapy
CPT/HCPCS: 64447; J0665; J1100; J2003

== ENCOUNTER 2025-06-17 10:45 | Outpatient (POV) | payer MEDICARE, OTHER, SELFPAY ==
--- OUTSIDE RECORDS SUMMARY | 2025-04-08 05:45 | XMS_ITS ---
Author Organization [facility] Address [address] [place] [id number] Care Team Providers Care Electrical Inspector Name Role Phone MarthaCherrieRashi Primary Care Provider [phone] Allergies Allergen (clinical drug ingredient) Drug/Non Drug Allergy documented on EMR Reaction Allergy Type Onset Date Status lisinopril Lisinopril cough Drug Allergy Activ e Results Component Value Reference Range Notes P-Vitamin B12 Reviewed date:04/09/2025 12:50:42 PM Interpretation:Normal Performing Lab: Notes/Report: Test performed by [facility] [address] [place] [address] , [facility], [place] [address] Stanley Prado MD, Final Block Press Operator CLIA: [id number] Vitamin B12 138 213-3413 pg/mL P-Comprehensive Metabolic Pa tika (CMP) Reviewed date:04/09/2025 12:50:58 PM Interpretation:glu 110, alk phos 122 Performing Lab: Notes/Report: Test performed by [facility] [address] [place], [place] [address]Her[place] Eddie [address], [place] [address] Stanley Prado MD, Final Block Press Operator CLIA: [id number] Sodium 139 135-145 mmol/L Potassium 4.4 3.5-5.3 mmol/L Chloride 102 97-108 mmol/L CO2 26 22-32 mmol/L Glucose 110 65-99 mg/dL BUN 9 8-23 mg/dL Creatinine 0.64 0.50-1.00 mg/dL Calcium 10.2 8.6-10.4 mg/dL eGFR by Creatinine 90 >59 mL/min/1.73m2 Protein 6.7 6.0-8.3 g/dL Albumin 4.3 3.5-5.3 g/dL Alkaline Phosphatase 122 35-121 IU/L ALT (SGPT) 16 <5-47 IU/L AST (SGOT) 17 <5-40 IU/L Bilirubin, Total 0.5 <0.2-1.2 mg/dL A/G Ratio 1.8 1.1-2.5 P-Lipid Panel Reviewed date:04/09/2025 12:50:50 PM Interpretation:Normal Performing Lab: Notes/Report: Test performed by [facility], [address] , [facility], [place] [address] Stanley Prado MD, Final Block Press Operator CLIA: [id number] Cholesterol 182 <200 mg/dL Triglycerides 63 <150 mg/dL HDL Cholesterol 82 >39 mg/dL Cholesterol / HDL Ratio 2.22 0.00-4.44 Ratio Non-HDL Cholesterol 100 <130 mg/dL LDL Cholesterol (Calculation) 87 <130 mg/dL LDL Cholesterol Levels* Less than 100 mg/dL Optimal 100 to 129 mg/dL Near Optimal/ Above Optimal 130 to 159 mg/dL Borderline High 160 to 189 mg/dL High 190 mg/dL and above Very High * Categories as recommended by the 2004 ATPIII guidelines LDL/HDL Ratio 1.1 <3.3 Ratio LDL Cholesterol Patient History Test Date: 09/09/2024 LDL Results: 95 Units: mg/dL % Change: - Test Date: 04/08/2025 LDL Results: 87 Units: mg/dL % Change: -8% P-TSH reflex to FT4 Reviewed date:04/09/2025 12:50:34 PM Interpretation:Normal Performing Lab: Notes/Report: Test performed by [facility] [address] [place] [address] , [place] [address] Stanley Prado MD, Final Block Press Operator CLIA: [id number] TSH reflex to FT4 2.36 0.43-5.25 mU/L P-Microalbumin/Creatinine, R andom Urine Sample Reviewed date:04/09/2025 12:50:26 PM Interpretation:Normal Performing Lab: Notes/Report: Test performed by [facility] [address] [place] [address] , [place] [address] Stanley Prado MD, Final Block Press Operator CLIA: [id number] Albumin/Creatinine Ratio, Urine 11 0-30 ug/m g Microalbumin, Urine, Random 0.6 Creatinine, Urine 52.2 REASON FOR VISIT 4 weeks Medications Medication SIG (Take, Route, Frequency, Duration) Notes Start Date End Date Status Diclofenac Sodium 1 % as directed Funeral Planning Counselor ally four times a day as needed 03/11/2025 Activ e Irbesartan 150 MG 1 tablet Orally Once a day 03/11 Active QUEtiapine Fumarate 50 MG 1 tab(s) orall y once a day (in the evening); Duration: 90 days Active Vitamin B-12 1000 MCG 2 tab(s) orally once a day OTC 0 04/22/2020 Active Vitamin D (Ergocalciferol) 1.25 MG (78592 UT) Take 1 capsule by mouth once a week; Duration: 90 Active Atorvastatin Calcium 10 MG 1 tab(s) orally once a day Active Ibuprofen 600 MG 1 tab(s) orally ever y 12 hours as needed 09/26/2017 Active Reclast 5 MG/100ML 5 mg intravenously o nce a year 07/02/2017 Active Omeprazole 40 MG 1 cap(s) orally once a day; Duration: 90 days Active Contrave 8-90 MG 2 tabs Orally Two ti mes a day 03/11/2025 Active amLODIPine Besylate 5 MG 1 tablet Orally Once a day Active Vitamin D3 25 MCG 1 tab(s) orally once a day; Duration: 30 day(s) Active Vitamin E 400 UNIT 1 cap(s) orally once a day Active Problems Problem Type SNOMED Code ICD Code Onset Dates Problem Status W/U Status Risk Notes Problem BMI 31.0-31.9,ad ult (Z68.31) Active confirmed Vital Signs Weight 168.0 lbs 04/08/2025 Blood pressure systolic 120 mm Hg 04/08/20 25 Blood pressure diastolic 70 mm Hg 025 Heart Rate 72 /min 04/08/2025 Height 61 in 04/08/2025 BMI 31.74 kg/m2 04/08/2025 Encounters Encounter Location Date Provider Diagnosis [facility] [address] [place], [place] [id number] 04/08/2025 Rashi Thomas Essential hypertensi on I10 ; Depression with anxiety F41.8 ; Pure hypercholesterolemia E78.00 ; Vitamin B12 deficiency E53.8 ; Non morbid obesity E66.9 and BMI 31.0-31.9,adult Z68.31 Assessments Encounter Date Diagnosis (ICD Code) Assessment Notes Treatment Notes Treatment Clinical Notes Section Notes 04/08/2025 Essential hypertensi on (ICD-10 - I10) 04/08/2025 Depression with anxi ety (ICD-10 - F41.8) 04/08/2025 Pure hypercholesterolemia (ICD-10 - E78.00) 04/08/2025 Vitamin B12 deficien cy (ICD-10 - E53.8) 04/08/2025 Non morbid obesity (ICD-10 - E66.9) 04/08/2025 BMI 31.0-31.9,adult (ICD-10 - Z68.31) Plan Of Treatment Medication Medication Name Sig Start Date Stop Date Notes Irbesartan 150 MG 1 tablet Orally Once a day 03/11/2025 Atorvastatin Calcium 10 MG 1 tab(s) orally once a day DULoxetine HCl 30 MG Take 1 capsule by m outh once daily Contrave 8-90 MG 2 tabs Orally Two times a day 03/11/2025 Next Appt Details Follow Up: 6 Months, Reason: Provider Name:Rashi Hernandezerci rivas, 07/12/2025 11:00:00 AM, [address] [facility] [address] [facility], [facility], [place], [place], [id number], Provider Name:Rashi Roy evelyn, 10/11/2025 10:00:00 AM, [address] [facility] [address] [facility], [facility] [address], [place], [place], [id number], Progress Notes * Roopa HOLGUINEDOB: (79 yo F)Acc No.[id number]:04/08/2025 Progress Notes Patient: Taylor DENNIS Roopa DONALD Provider: Santosh Thomas M.D. :1945 A ge:79 Y S ex:Female Date:04/08/2025 Address:[address] [place] [address] [id number] Subjective: * Chief Complaints: * 1 . 4 weeks. * HPI: C ardiology: 79 year old female presents with c/o BloodPressure at Home T he pt is here for a follow up on Hypertension. Pt states she is taking the Irbesartan and denies any side effects. Pt states she is fasting. Denies : Chest Pain. D enies : Short of Breath. D enies : Dizziness. D enies : Palpitations. C onstitutional: c/o weight loss T he pt states she has not been able to tolerate the increase on contrave due to nausea and constipation. Pt states she is taking one in the morning and one in the evening. K nee/Frost: c/o knee pain T he pt states she had an injection in her right knee on March first and it has helped some. Pt rates the pain today about 3-4/10. Pt states the pain is worse with walking and going up and down the steps. * ROS: D ERMATOLOGY: no R brianne. n o H damien. G ASTROENTEROLOGY: no N ausea. n o V omiting. n o D iarrhea.? U ROLOGY: no D ifficulty urinating. n [...] Hospitalization/Major Diagno stic Procedure: F all, Pneumothorax- [facility] 10/30/2020. * Family History: F ather: , diagnosed with Cancer. M other: . S carli: alive, diagnosed with Hypertension. C hermilo: alive. 2 sister(s) . 1 son(s) , 1 daughter(s) - healthy. .? Father - Lung Cancer. * Social History: C URRENT TOBACCO USE S moking Status: P atient does NOT smoke, F ormer Smoker:?Yes Pt states that she smoked for [...] tab(s) orally once a day , Taking QUEtiapine Fumarate 50 MG Tablet 1 tab(s) orally once a day (in the evening) , Taking Vitamin B-12 1000 MCG Tablet 2 tab(s) orally once a day , Notes to Pharmacist: OTC, Taking Vitamin D (Ergocalciferol) 1.25 MG (20743 UT) Capsule Take 1 capsule by mouth once a week , Taking Irbesartan 150 MG Tablet 1 tablet Orally Once a day , Taking Contrave 8-90 MG Tablet Extended Release 12 Hour 2 tabs Orally Two times a day , Taking Diclofenac Sodium 1 % Gel as directed Externally four times a day as needed , Taking DULoxetine HCl 30 MG Capsule Delayed Release Particles Take 1 capsule by mouth once daily , Medication List reviewed and reconciled with the patient * Allergies: L isinopril: cough - Side Effects. Objective: * Vitals: W t: 168.0, Temp: 98.0, BP: 120/70, HR: 72, Nurse: MINA, Ht: 61, BMI:31.74. * Examination: C ardiology: General Appearance: p leasant, NAD. H EENT: u nremarkable. H eart sounds: R RR, normal S1, S2. L ungs: c lear, no rales or wheezes.?Extremities: n o leg edema. P eripheral pulses: 2 plus bilateral. ? Assessment: * Assessment: 1. E ssential hypertension - I10 (Primary) 2 . D epression with anxiety - F41.8 3 . P ure hypercholesterolemia - E78.00 4 . V itamin B12 deficiency - E53.8 5 . N on morbid obesity - E66.9 6 . B IN 31.0-31.9,adult - Z68.31 Plan: * Treatment: Value Reference Range A /G Ratio 1.8 1.1-2.5 - * A lbumin 4.3 3.5-5.3 - g/dL * A lkaline Phosphatase 122 H 35-121 - IU/L * A LT (SGPT) 16 <5-47 - IU/L * A ST (SGOT) 17 <5-40 - IU/L * B ilirubin, Total 0.5 <0.2-1.2 - mg/dL * B UN 9 8-23 - mg/dL * C alcium 10.2 8.6-10.4 - mg/dL * C hloride 102 97-108 - mmol/L * C O2 26 22-32 - mmol/L * C reatinine 0.64 0.50-1.00 - mg/dL * G lucose 110 H 65-99 - mg/dL * P otassium 4.4 3.5-5.3 - mmol/L * S odium 139 135-145 - mmol/L * P rotein 6.7 6.0-8.3 - g/dL * e GFR by Creatinine 90 >59 - mL/min/1.73m2 * Judy Johns 04/09/2025 12: 10:01 PM > labs are all satisfactorySelma Lancaster 04/09/2025 12:50:54 PM >pt informed ?LAB: P-Microalbumin/Creatinine, Random Urine Sample (Collection Date & Time - 04/08/2025 09:01 AM)?Normal* Value Reference Range A lbumin/Creatinine Ratio, Urine 11 0-30 - ug /mg * C reatinine, Urine 52.2 - mg/dL * M icroalbumin, Urine, Random 0.6 - mg/dL * Judy Johns 04/09/2025 12: 10:01 PM > labs are all satisfactorySelma Lancaster 04/09/2025 12:50:21 PM >pt informed 2.?Depression with anxiety? Stop DULoxetine HCl Capsule Delayed Release Particles, 30 MG, Take 1 capsule by mouth once daily. ?3.?Pure hypercholesterolemia? Continue Atorvastatin Calcium Tablet, 10 MG, 1 tab(s), orally, once a day.?LAB: P-Comprehensive Metabolic Panel (CMP) (Collection Date & Time - 04/08/2025 09:01 AM)?glu 110, alk phos 122* Value Reference Range A /G Ratio 1.8 1.1-2.5 - * A lbumin 4.3 3.5-5.3 - g/dL * A lkaline Phosphatase 122 H 35-121 - IU/L * A LT (SGPT) 16 <5-47 - IU/L * A ST (SGOT) 17 <5-40 - IU/L * B ilirubin, Total 0.5 <0.2-1.2 - mg/dL * B UN 9 8-23 - mg/dL * C alcium 10.2 8.6-10.4 - mg/dL * C hloride 102 97-108 - mmol/L * C O2 26 22-32 - mmol/L * C reatinine 0.64 0.50-1.00 - mg/dL * G lucose 110 H 65-99 - mg/dL * P otassium 4.4 3.5-5.3 - mmol/L * S odium 139 135-145 - mmol/L * P rotein 6.7 6.0-8.3 - g/dL * e GFR by Creatinine 90 >59 - mL/min/1.73m2 * Judy Johns 04/09/2025 12: 10:01 PM > [facility] [place] 04/09/2025 12:50:54 PM >pt informed ?LAB: P-Lipid Panel (Collection Date & Time - 04/08/2025 09:01 AM)?Normal* Value Reference Range C holesterol / HDL Ratio 2.22 0.00-4.44 - Ratio * C holesterol 182 <200 - mg/dL * H DL Cholesterol 82 >39 - mg/dL * L DL Cholesterol (Calculation) 87 <130 - mg/d L * L DL/HDL Ratio 1.1 <3.3 - Ratio * N on-HDL Cholesterol 100 <130 - mg/dL * T riglycerides 63 <150 - mg/dL * Judy Johns 04/09/2025 12: 10:01 PM > [facility] 04/09/2025 12:50:46 PM >pt informed ?LAB: P-TSH reflex to FT4 (Collection Date & Time - 04/08/2025 09:01 AM)? Normal* Value Reference Range T SH reflex to FT4 2.36 0.43-5.25 - mU/L * Judy Johns 04/09/2025 12: 10:01 PM > [facility] [place] 04/09/2025 12:50:30 PM >pt informed 4.?Vitamin B12 deficiency?LAB: P-Vitamin B12 (Collection Date & Time - 04/08/2025 09:01 AM)?Normal* Value Reference Range V itamin B12 212 847-1452 - pg/mL * Judy Johns 04/09/2025 12: 10:01 PM > [facility] [place] 04/09/2025 12:50:38 PM >pt informed 5.?Non morbid obesity? Continue Contrave Tablet Extended Release 12 Hour, 8-90 MG, 2 tabs, Orally, Two times a day.? * Procedure Codes: G 2211 Complex e/m visit add on, 3074F SYST BP LT 130 MM HG, 3078F DIAST BP < 80 MM HG * Follow Up: 6 Months * Images: Billing Information: * Visit Code: 02202 Office Visit, Est Pt., Level 4. * Procedure Codes: G2211 Complex e/m visit add on. 3074F SYST BP LT 130 MM HG. 3078F DIAST BP < 80 MM HG. * Electronic signature of Aruna Thomas MD on 06/17/2025 at 10:48 AM EDT Sign off status: Pending * Provider: Santosh Thomas M.D. Date: 0 04/08/2025 Generated for Jorge horvath/Dianne/Skylaitting on: 0 06/17/2025 10:48 AM EDT History and Physical Notes * HPI (History of Present Illness) Category Sub-Category Detail Notes Category Not es Cardiology Short of Breath Chest Pain Palpitations Dizziness BloodPressure at Home The pt is here for a follow up on Hypertension. Pt states she is taking the Irbesartan and denies any side effects. Pt states she is fasting Knee/Frost knee pain The pt states cinthia bhatia had an injection in her right knee on March first and it has helped some. Pt rates the pain today about 3-4/10. Pt states the pain is worse with walking and going up and down the steps Constitutional weight loss The pt states cinthia bhatia has not been able to tolerate the increase on contrave due to nausea and constipation. Pt states she is taking one in the morning and one in the evening Examination Category Sub-Category Detail Notes Category Not es Cardiology Lungs: clear, no rales or wheezes HEENT: unremarkable Heart sounds: RRR, normal S1, S2 Extremities: no leg edema Peripheral pulses: 2 plus bilateral General Appearance: pleasant, NAD
--- OUTSIDE RECORDS SUMMARY | 2025-06-14 12:45 | XMS_ITS ---
[facility] [address] [place] [phone] Care Team Providers Care Assembler Latches And Springs Name Role Phone Rashi Thomas Primary Care Provider Allergies Allergen (clinical drug ingredient) Drug/Non Drug Allergy documented on EMR Reaction Allergy Type Onset Date Status lisinopril Lisinopril cough Drug Allergy Activ e REASON FOR VISIT consult Medications Medication SIG (Take, Route, Frequency, Duration) Notes Start Date End Date Status Omeprazole 40 MG 1 cap(s) orally once a day; Duration: 90 days Active Diclofenac Sodium 1 % as directed Top Coater ally four times a day as needed 03/11/2025 Activ e Vitamin D (Ergocalciferol) 1.25 MG (56680 UT) Take 1 capsule by mouth once a week; Duration: 90 Active Atorvastatin Calcium 10 MG 1 tab(s) oral ly once a day; Duration: 90 days Active Vitamin B-12 1000 MCG 2 tab(s) orally once a day OTC 0 04/22/2020 Active QUEtiapine Fumarate 50 MG 1 tab(s) orall y once a day (in the evening); Duration: 90 days Active amLODIPine Besylate 5 MG 1 tablet Orally Once a day Active DULoxetine HCl 60 MG 1 capsule Orally On ce a day; Duration: 30 days 06/14/2025 Active Irbesartan 150 MG 1 tablet Orally Once a day 03/11 Active Vitamin E 400 UNIT 1 cap(s) orally once a day Active Vitamin D3 25 MCG 1 tab(s) orally once a day; Duration: 30 day(s) Active Reclast 5 MG/100ML 5 mg intravenously o nce a year 07/02/2017 Active Ibuprofen 600 MG 1 tab(s) orally ever y 12 hours as needed 09/26/2017 Active Diclofenac Potassium 50 MG 1 tablet with food or milk as needed Orally Twice a day Active Vital Signs Weight 179 lbs 06/14/2025 Blood pressure systolic 160 mm Hg 06/14/20 25 Blood pressure diastolic 80 mm Hg 025 Heart Rate 85 /min 06/14/2025 Height 61 in 06/14/2025 BMI 33.82 kg/m2 06/14/2025 Encounters Encounter Location Date Provider Diagnosis [facility] [address] [place] [phone] 06/14/2025 Rashi Thomas Depression with anxi ety F41.8 and Essential hypertension I10 Assessments Encounter Date Diagnosis (ICD Code) Assessment Notes Treatment Notes Treatment Clinical Notes Section Notes 06/14/2025 Depression with anxiety (ICD-10 - F41.8) 06/14/2025 Essential hypertension (ICD-10 - I10) Plan Of Treatment Medication Medication Name Sig Start Date Stop Date Notes amLODIPine Besylate 5 MG 1 tablet Orally Once a day DULoxetine HCl 60 MG 1 capsule Orally On ce a day; Duration: 30 days 06/14/2025 Irbesartan 150 MG 1 tablet Orally Once a day 03/11/2025 Next Appt Details Follow Up: 3 or 4 Weeks, Nathalia son: Provider Name:Rasih rivas, 07/12/2025 11:00:00 AM, [address] [facility], [address], [place], [phone], Provider Name:Rashi rivas, 10/11/2025 10:00:00 AM, [address] [facility], [address], [place], [phone], Progress Notes * Roopa HOLGUINOB: (79 yo F)Acc No.[id number]:06/14/2025 Progress Notes Patient: Roopa BAIRD Provider: Santosh Thomas M.D. :1945 A ge:79 Y S ex:Female Date:06/14/2025 Address:[address] [place] [address] [id number] Subjective: * Chief Complaints: * 1 . Consult. * HPI: P sychology: 79 year old female presents with c/o depression P t complains of feeling depressed. Pt states she is gaining weight and she eats when she has problems . Pt states she is bored and does not have any hobbies. Pt states a friend told her about Cymbalta and pt would like to talk about starting it. H PI: c/o Here for follow up on: P t would like to discuss issues with weight gain. Pt was taking Contrave but it gave her diarrhea and she was not losing weight.? * ROS: D ERMATOLOGY: no R brianne. [...] Hospitalization/Major Diagno stic Procedure: F all, Pneumothorax- [facility] ER 10/30/2020. * Family History: F ather: , diagnosed with Cancer. M other: . S iblings: alive, diagnosed with Hypertension. C hildren: alive. 2 sister(s) . 1 son(s) , 1 daughter(s) - healthy. .? Father - Lung Cancer. * Social History: C URRENT TOBACCO USE S moking Status: P atient does NOT smoke, F ormer Smoker:?Yes Pt states that she smoked for 2 years and it was 30 years ago (2016), S econd hand smoke exposure: Y es and children. * Medications: T aking Diclofenac Potassium 50 MG Tablet 1 tablet with food or milk as needed Orally Twice a day , Taking amLODIPine Besylate 5 MG Tablet 1 tablet [...] mg intravenously once a year , Taking QUEtiapine Fumarate 50 MG Tablet 1 tab(s) orally once a day (in the evening) , Taking Vitamin B-12 1000 MCG Tablet 2 tab(s) orally once a day , Notes to Pharmacist: OTC, Taking Vitamin D (Ergocalciferol) 1.25 MG (01498 UT) Capsule Take 1 capsule by mouth once a week , Taking Diclofenac Sodium 1 % Gel as directed Externally four times a day as needed , Taking Irbesartan 150 MG Tablet 1 tablet Orally Once a day , Taking Atorvastatin Calcium 10 MG Tablet 1 tab(s) orally once a day , Taking Omeprazole 40 MG Capsule Delayed Release 1 cap(s) orally once a day , Discontinued Contrave 8-90 MG Tablet Extended Release 12 Hour 2 tabs Orally Two times a day , Medication List reviewed and reconciled with the patient * Allergies: L isinopril: cough - Side Effects. Objective: * Vitals: W t: 179, Temp: 97.9, BP: 160/80, HR: 85, Nurse: bassam, Ht: 61, BMI:33.82. * Examination: P sychology: General Appearance: N AD. G rooming : a dequate.?Eye contact : n ormal. M ood : p learcelia. H eart: R SR. L ungs: c lear to auscultation. Assessment: * Assessment: 1. D epression with anxiety - F41.8 (Primary) 2 . E ssential hypertension - I10 Plan: * Treatment: 2. E ssential hypertension Continue amLODIPine Besylate Tablet, 5 MG, 1 tablet, Orally, Once a day; C ontinue Irbesartan Tablet, 150 MG, 1 tablet, Orally, Once a day. * Procedure Codes: G 2211 Complex e/m visit add on * Follow Up: 3 or 4 Weeks * Images: Billing Information: * Visit Code: 00952 Office Visit, Est Pt., Level 3. * Procedure Codes: G2211 Complex e/m visit add on. * Electronic signature of Aruna Thomas MD on 06/17/2025 at 10:49 AM EDT Sign off status: Pending * Provider: Santosh Thomas M.D. Date: 06/14/2025 Generated for Jorge horvath/Dianne/Skylaitting on: 06/17/2025 10:49 AM EDT History and Physical Notes * HPI (History of Present Illness) Category Sub-Category Detail Notes Category Not es Psychology depression Pt complains of feeling depressed. Pt states she is gaining weight and she eats when she has problems . Pt states she is bored and does not have any hobbies. Pt states a friend told her about Cymbalta and pt would like to talk about starting it HPI Here for follow up on: Pt would like to discuss issues with weight gain. Pt was taking Contrave but it gave her diarrhea and she was not losing weight Examination Category Sub-Category Detail Notes Category Not es Psychology Heart: RSR Lungs: clear to auscultatio n General Appearance: NAD Grooming : adequate Eye contact : normal Mood : pleasant
--- OUTSIDE RECORDS SUMMARY | 2025-06-17 10:50 | XMS_ITS | Patient Health Record ---
Author Organization [facility] Address [address] [facility] [address] [place] [id number] Care Team Providers Care Brake Lining Curer Name Role Phone Rashi Thomas Primary Care Provider [phone] Kimo Ballard [phone] Allergies Allergen (clinical drug ingredient) Drug/Non Drug Allergy documented on EMR Reaction Allergy Type Onset Date Status lisinopril Lisinopril cough Drug Allergy Activ e Results Component Value Reference Range Notes P-Vitamin B12 Reviewed date:04/09/2025 12:50:42 PM Interpretation:Normal Performing Lab: Notes/Report: Test performed by [facility] [address] [place], [place] [address] [place] , [address], [place] [address] Stanley Prado MD, Bowl Sander CLIA: [id number] Vitamin B12 [phone] pg/mL P-Comprehensive Metabolic Pa tika (CMP) Reviewed date:04/09/2025 12:50:58 PM Interpretation:glu 110, alk phos 122 Performing Lab: Notes/Report: Test performed by [facility] [employer] [address] , [address], [place] [address] Stanley Prado MD, Bowl Sander CLIA: [id number] Sodium 139 135-145 mmol/L Potassium 4.4 3.5-5.3 [...] Interpretation:Normal Performing Lab: Notes/Report: Test performed by [facility], [address] , [place] [address] Stanley Prado MD, Bowl Sander CLIA: [id number] Cholesterol 182 <200 mg/dL Triglycerides 63 <150 [...] Interpretation:Normal Performing Lab: Notes/Report: Test performed by [facility] [address] [place] [address] , [address] , [place] [address] Stanley Prado MD, Bowl Sander CLIA: [id number] TSH reflex to FT4 2.36 0.43-5.25 mU/L P-Microalbumin/Creatinine, R andom Urine Sample Reviewed date:04/09/2025 12:50:26 PM Interpretation:Normal Performing Lab: Notes/Report: Test performed by [facility] [address] [place] [address] , [place] [address] Stanley Prado MD, Bowl Sander CLIA: [id number] Albumin/Creatinine Ratio, Urine 11 0-30 ug/m g Microalbumin, Urine, Random 0.6 Creatinine, Urine 52.2 P-Vitamin D 25-Hydroxy Reviewed date:09/10/2024 10:21:00 AM Interpretation: Normal Performing Lab: Notes/Report: Test performed by [facility] [address] [place] [address] , [address], [place] [address] Stanley Prado MD, Bowl Sander CLIA: [id number] Vitamin D 25-Hydroxy 50.9 30.0-100.0 ng/mL Interpretation of Vitamin D 25 OH: < 20 ng/mL - Deficiency 20 - 29 ng/mL - Insufficiency 30 - 100 ng/mL - Sufficiency > 100 ng/mL - Super-therapeutic- toxicity may occur above this level. Clinical correlation required. P-TSH reflex to FT4 Reviewed date:09/10/2024 10:21:00 AM Interpretation: Normal Performing Lab: Notes/Report: Test performed by [facility] [address] [place] [address] [address], [place] [address] Stanley Prado MD, Bowl Sander CLIA: [id number] TSH reflex to FT4 1.63 0.43-5.25 mU/L P-Lipid Panel Reviewed date:09/10/2024 10:21:00 AM Interpretation:chol 205 Performing Lab: Notes/Report: Test performed by [facility] [employer] [address] [place] [address] , [address], [place] [address] Stanley Prado MD, Bowl Sander CLIA: [id number] Cholesterol 205 <200 mg/dL Triglycerides 56 <150 [...] ATPIII guidelines LDL/HDL Ratio 1.0 <3.3 Ratio LDL Cholesterol Patient History Test Date: 09/09/2024 LDL Results: 95 Units: mg/dL % Change: - P-Comprehensive Metabolic Pa tika (CMP) Reviewed date:09/10/2024 10:21:00 AM Interpretation:gluc 108, alk phos 124 Performing Lab: Notes/Report: Test performed by [facility] [address] [place] [address] , [address], [place] [address] Stanley Prado MD, Bowl Sander CLIA: [id number] Sodium 139 135-145 mmol/L Potassium 4.8 3.5-5.3 [...] 0.7 <0.2-1.2 mg/dL A/G Ratio 1.9 1.1-2.5 P-Vitamin B12 Reviewed date:09/10/2024 10:21:00 AM Interpretation:259 Performing Lab: Notes/Report: Test performed by [facility] [address] [place] [address] , [address], [place] [address] Stanley Prado MD, Bowl Sander CLIA: [id number] Vitamin B12 352 349-0246 pg/mL X ray : Knee, right Reviewed date:03/12/2025 08:29:57 AM Interpretation: Performing Lab: Notes/Report: P-Vitamin B12 Reviewed date:10/29/2024 08:30:57 AM Interpretation: Performing Lab: Notes/Report: Test performed by [facility] [address] [place] [address] , [address], [place] [address] Stanley Prado MD, Bowl Sander CLIA: [id number] Vitamin B12 553 945-3347 pg/mL Reason For Referral Diagnosis 1 Arthritis of knee, r ight (M17.11) Referral Organization [facility] Referring Provider First Name Rashi Referring Provider Last Name Martha Referring Provider Speciality Family [facility] ctice Referred Provider Fernando Aranda Referred Provider Specialty Orthopedic S urgery General Notes Katie Ruth 2024 10:27:26 AM > 03/25/2025 at 10:15am; patient informed Referral Priority Routine Medications Medication SIG (Take, Route, Frequency, Duration) Notes Start Date End Date Status Diclofenac Potassium 50 MG 1 tablet with food or milk as needed Orally Twice a day Active Irbesartan 150 MG 1 tablet Orally Once a day 03/11 Active Vitamin E 400 UNIT 1 cap(s) orally once a day Active Vitamin D3 25 MCG 1 tab(s) orally once a day; Duration: 30 day(s) Active Omeprazole 40 MG 1 cap(s) orally once a day; Duration: 90 days Active Reclast 5 MG/100ML 5 mg intravenously o nce a year 07/02/2017 Active Ibuprofen 600 MG 1 tab(s) orally ever y 12 hours as needed 09/26/2017 Active Vitamin B-12 1000 MCG 2 tab(s) orally once a day OTC 0 04/22/2020 Active QUEtiapine Fumarate 50 MG 1 tab(s) orall y once a day (in the evening); Duration: 90 days Active amLODIPine Besylate 5 MG 1 tablet Orally Once a day Active Diclofenac Sodium 1 % as directed Brim Presser ally four times a day as needed 03/11/2025 Activ e DULoxetine HCl 60 MG 1 capsule Orally On ce a day; Duration: 30 days 06/14/2025 Active Vitamin D (Ergocalciferol) 1.25 MG (16019 UT) Take 1 capsule by mouth once a week; Duration: 90 Active Atorvastatin Calcium 10 MG 1 tab(s) oral ly once a day; Duration: 90 days Active Immunizations Vaccine Route Administration Date Status [...] Problem Status W/U Status Risk Notes Problem Vitamin D deficiency (80668881) Vitamin D deficiency (E55.9) Active confirmed Problem Vitamin B12 deficiency (951075746) Vitamin B12 deficiency (E53.8) Active confirmed Problem Hypercalcemia (49392781) Hypercalcemia (E83.52) Active confirmed Problem Essential hypertension (19731843) Essential hypertension (I10) Active confirmed Problem Mixed anxiety and depressive disorder (090068324) Depression with anxiety (F41.8) Active confirmed Problem BMI 30+ - obesity (975382916) BMI 32.0-32.9,adult (Z68.32) Active confirmed Problem Memory loss (93950908) Memory loss (R41.3) Active confirmed Problem Primary insomnia (3619086) Primary insomnia (F51.01) Active confirmed Problem Age-related osteoporosis (677434541) Age-related osteoporosis without current pathological fracture (M81.0) Active confirmed Problem Abnormal findings on diagnostic imaging of breast (918557929) Other abnormal and inconclusive findings on diagnostic imaging of breast (R92.8) Active confirmed Problem History of polyp of colon (situation) (291611440) History of colon polyps (Z86.010) Active confirmed Problem Constipation (98121334) Constipation, unspecified constipation type (K59.00) Active confirmed Problem Osteoporosis (80722716) Osteoporosis (M81.0) Active confirmed Problem Adjustment disorder with anxious mood (89344315) Adjustment disorder with anxious mood (F43.22) Active confirmed Problem Body mass index 30.0 0 to 34.99 (198262753870388) BMI 31.0-31.9,adult (Z68.31) Active confirmed Problem Pure hypercholesterolemia (977327314) Pure hypercholesterolemia (E78.00) Active confirmed Problem Chronic idiopathic constipation (22504054) Chronic idiopathic constipation (K59.04) Active confirmed Problem Obesity (242206482) Non morbid o besity (E66.9) Active confirmed Problem Arthritis of right knee (2179797369178934) Arthritis of knee, right (M17.11) Active confirmed Problem Pica (63556333) Pica 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) Active confirmed Problem Gastroesophageal reflux disease (661911661) Gastroesophageal reflux disease, unspecified whether esophagitis present (K21.9) Active confirmed Vital Signs Heart Rate 85 /min 06/14/2025 Blood pressure diastolic 80 mm Hg 06/14/2025 Height 61 in 06/14/2025 Blood pressure systolic 160 mm Hg 06/14/2025 Weight 179 lbs 06/14/2025 BMI 33.82 kg/m2 06/14/2025 Encounters Encounter Location Date Provider Diagnosis [facility] [address] [facility] [address] [place], [place] [id number] 09/09/2024 [facility] Pure hypercholestero lemia E78.00 ; Vitamin D deficiency E55.9 ; Primary insomnia F51.01 ; Vitamin B12 deficiency E53.8 ; Depression with anxiety F41.8 ; Encounter for immunization Z23 and Non morbid obesity E66.9 [facility] [address] [place], [place] [id number] 10/28/2024 Kimo Ballard Vitamin B12 deficien cy E53.8 [facility] [address] [place], [employer] [id number] 03/11/2025 [facility] Essential hypertensi on I10 ; Depression with anxiety F41.8 ; Non morbid obesity E66.9 ; Pure hypercholesterolemia E78.00 ; Vitamin D deficiency E55.9 ; Vitamin B12 deficiency E53.8 ; Age-related osteoporosis without current pathological fracture M81.0 ; Gastroesophageal reflux disease, unspecified whether esophagitis present K21.9 ; Acute pain of right knee M25.561 and BMI 32.0-32.9,adult Z68.32 [facility] [address] [facility] [address] [place], [place] [id number] 04/08/2025 [facility] Essential hypertensi on I10 ; Depression with anxiety F41.8 ; Pure hypercholesterolemia E78.00 ; Vitamin B12 deficiency E53.8 ; Non morbid obesity E66.9 and BMI 31.0-31.9,adult Z68.31 [facility] [address] [place], [place] [id number] 06/14/2025 [facility] Depression with anxi ety F41.8 and Essential hypertension I10 [facility] [address] [facility] [address] [place], [place] [id number] 09/10/2024 [facility] Vitamin B12 deficien cy E53.8 [facility] [address] [place], [place] [id number] 03/12/2025 [facility] Acute pain of right knee M25.561 and Arthritis of knee, right M17.11 [facility] [address] [place], [place] [id number] 04/08/2025 [facility] [address] [place], [place] [id number] 06/07/2025 [facility] [address] [place], [place] [id number] 06/07/2025 [facility] Assessments Encounter Date Diagnosis (ICD Code) Assessment [...] Depression with anxi ety (ICD-10 - F41.8) 06/14/2025 Essential hypertensi on (ICD-10 - I10) 06/14/2025 Depression with anxi ety (ICD-10 - F41.8) 04/08/2025 Pure hypercholesterolemia (ICD-10 - E78.00) 03/11/2025 Non morbid obesity (ICD-10 - E66.9) 10/28/2024 Vitamin B12 deficien cy (ICD-10 - E53.8) 09/09/2024 Primary insomnia (IC D-10 - F51.01) 09/09/2024 Vitamin B12 deficien cy (ICD-10 - E53.8) 04/08/2025 Vitamin B12 deficien cy (ICD-10 - E53.8) 03/11/2025 Pure hypercholesterolemia (ICD-10 - E78.00) 04/08/2025 Non morbid obesity (ICD-10 - E66.9) 09/09/2024 Depression with anxi ety (ICD-10 - F41.8) 03/11/2025 Vitamin D deficiency (ICD-10 - E55.9) 03/11/2025 Vitamin B12 deficien cy (ICD-10 - E53.8) 09/09/2024 Encounter for immunization (ICD-10 - Z23) 04/08/2025 BMI 31.0-31.9,adult (ICD-10 - Z68.31) 09/09/2024 Non morbid obesity (ICD-10 - E66.9) diet & exercise reviewed with patient 03/11/2025 Age-related osteopor osis without current pathological fracture (ICD-10 - M81.0) 03/11/2025 Gastroesophageal ref lux disease, unspecified whether esophagitis present (ICD-10 - K21.9) 03/11/2025 Acute pain of right knee (ICD-10 - M25.561) 03/11/2025 BMI 32.0-32.9,adult (ICD-10 - Z68.32) Plan Of Treatment Pending Test Test Name Order Date colonoscopy 04/07/2024 Mammogram 06/07/2025 Next Appt Details Provider Name:Rashi Roy ry, 07/12/2025 11:00:00 AM, [address], [place], [id number], Provider Name:Rashi T Manuela rivas, 10/11/2025 10:00:00 AM, [address] [place], [address], [place], [id number], Insurance Providers Payer Name Payer Address Payer Phone Subscriber Number Group Number Insured Name Patient Relationship to Insured Coverage Start Date Coverage End Date MEDICARE PART B [address] [address] [place] [address] [id number] Lissa HOLGUINa Self - patient is the insured [employer] SUPPLEMENT [address] [address] [place], [place] [id number] [phone] [id number] Roopa HOLGUIN Self - patient is the insured Medical (General) History Medical History History ICD Code insomnia hyperlipidemia Vitamin D deficiency Colon polyps osteoporosis, Dx: May 2017 hemorrhoids Basal cell carinoma, left cheek, s/p exc ision 2021 constipation Surgical History Surgery Date(Month/Year) tubal ligation, bilateral 1977 Hemicolectomy and gall bladder removal 1 977 gastric bypass 1983 hysterectomy, total 1995 Hammer toe repair colonoscopy: 2021 Hospitalization History Reason Date(Month/Year) Fall, Pneumothorax- [facility] 10/30/2020
[2025-06-17 10:57] VITALS: BP 127/73; PULSE 71; RESP 14; O2SAT 98; BMI 33.2
--- NOTE | 2025-06-17 11:20 | A.OFFVIS_ITS ---
[facility] Disclaimer: The information contained in this section may have been updated after the patient was seen, as this information can be updated by other users. Medical History History of gastroesophageal reflux (GERD) Depression with anxiety HLD (hyperlipidemia) History of skin cancer Surgical History History of colonoscopy History of bladder suspension procedure History of appendectomy Hx of hysterectomy Family History Sister Family hx-breast malignancy Social History Smoking Status: Former smoker alcohol intake: never substance use type: denies use current occupational status: other Travel in the last 8 weeks?: None household members: none housing: house caffeine: Yes Have you lived/traveled outside US in past 30 days?: No Contact w/someone who lives/traveled outside US past 30 days?: No Exposure to someone with infectious disease in past 14 days?: No Do you have a fever (greater than 100.4 F or 38 C)?: No Have you tested positive for COVID-19?: No Exposed to someone with COVID-19 in past 14 days?: No Do you have a sore throat?: No Do you have a cough?: No Do you have any weakness?: No Do you have any diarrhea?: No Are you experiencing any unusual bleeding?: No Do you have any muscle aches/pain?: No Do you have any abdominal pain?: No Are you experiencing loss of taste or smell?: No PM Subjective & Objective Subjective Subjective:: Patient is a pleasant 79-year-old female who presents today for follow-up of her right knee infrapatellar nerve block on 06/01/2025. Patient rates her pain today a 2 out of 10. She states she has had at least 90% improvement. Patient does have some issues along the left knee that just recently came up where she twisted it a little funny. Patient states the pain has improved. Patient is still using her compounded cream with significant improvement. Her Morgan has been reviewed and is appropriate. Review of Systems: General: No recent weight changes, no fever, no sleep disturbances Respiratory: No cough, no shortness of air, no recurring pulmonary infections Cardiovascular/peripheral vascular: No chest pain, no palpitations, no edema, no shortness of breath Gastrointestinal: No new onset incontinence, normal bowel movements reported Genitourinary: No new onset incontinence Musculoskeletal: Knee pain Psychiatric: [Normal mood/affect] Neurological: [Denies weakness in extremities], [denies balance issues] Pain at rest (0-10 scale): 2 Objective Objective:: Physical Exam: General: Alert and oriented x3, no acute distress, pleasant and cooperative Lungs: Respirations even and unlabored, symmetrical chest expansion Eyes: PERRL Musculoskeletal: Flexion and extension of left knee somewhat guarded secondary to pain, [antalgic gait noted] Neurological: Speech clear, no gross sensory deficit Has patient had previous pain injection?: Yes Percent improvement in pain since last injection: 90% Conservative treatment options previously tried: Home exercise plan Length of treatment: Longer than 12 weeks Meds Home Medications and Allergies Home Medications ?Medication ?Instructions ?Recorded ?Confirmed ?Type atorvastatin 40 mg tablet 40 mg PO DAILY Cholesterol 1 12/26/17 06/17/25 History aspirin 81 mg tablet,delayed 81 mg PO DAILY heart heal th 04/16/19 06/17/25 History release cyanocobalamin (vitamin B-12) 1 tab PO DAILY Supplemen t 06/22/22 06/17/25 History 2,500 mcg tablet duloxetine 60 mg capsule,delayed 60 mg PO DAILY Depres abhijti 06/22/22 06/17/25 History release (Cymbalta) ergocalciferol (vitamin D2) 1,250 1,250 mcg PO DAILY S upplement 06/22/22 06/17/25 History mcg (50,000 unit) capsule omeprazole 40 mg capsule,delayed 40 mg PO DAILY GERD 0 06/22/22 06/17/25 History release quetiapine 50 mg tablet (Seroquel) 25 mg PO HS sleep 0 06/22/22 06/17/25 History vitamin E (dl, acetate) 180 mg 180 mg PO DAILY Supplem ent 06/22/22 06/17/25 History (400 unit) capsule diclofenac potassium 50 mg tablet 50 mg PO BID #60 tab s 06/02/25 06/17/25 Rx amlodipine 5 mg tablet 5 mg PO DAILY 06/07/2506/17 History azithromycin 250 mg tablet See Rx Instructions PO .COM PLEX #6 06/07/25 06/17/25 Rx tabs benzonatate 100 mg capsule 100 mg PO TID PRN cough #30 caps 06/07/25 06/17/25 Rx fluticasone propionate 50 2 spray intranasal DAILY #16 grams 06/07/25 06/17/25 Rx mcg/actuation nasal spray,suspension (Flonase Allergy Relief) guaifenesin 600 mg tablet, 600 mg PO Q12H PRN congesti on #20 06/07/25 06/17/25 Rx extended release 12 hr (Mucinex) tabs irbesartan 150 mg tablet 150 mg PO DAILY 06/07/25 History New Prescriptions to Start Prescriptions: Allergies Allergy/AdvReac Type Severity Reaction Status Date / Time No Known Allergies Allergy Verified 06/07/25 10:21 Assessment and Plan *Assessment and plan (1) Osteoarthritis of right knee: Status: Acute Category: Medical Code(s): M17.11 - Unilateral primary osteoarthritis, right knee (2) Left knee pain: Status: Acute Category: Medical Code(s): M25.562 - Pain in left knee Plan Patient has had significant improvement from her infrapatellar nerve block and does not require any additional injection therapy at this time. Patient will return to clinic in 6 weeks for reevaluation of symptoms and plan of care. Patient has been instructed to contact the clinic with any concerns before the next appointment. Dr. Desai has reviewed this note and agrees with this plan of care. This note was dictated using voice recognition software and make contain errors or omissions. All injections are used with Lidocaine, Bupivacaine and dexamethasone. Occasionally urine drug screen is needed to verify patient's compliance with our office pain contract. This is ordered based off specific treatments related to chronic pain with the potential to abuse certain medications.
== END 2025-06-17 23:59 | disposition home or self-care (01) ==
LOC: SC.PAIN 10:48
PROVIDERS: PCP Family Medicine; Visit Provider Nurse Practitioner Family
DX: M25.562 Pain in left knee (principal); M17.11 Unilateral primary osteoarthritis, right knee
CPT/HCPCS: 99212; G0463

== ENCOUNTER 2025-06-17 11:03 | Outpatient (CLI) | payer MEDICARE, OTHER, SELFPAY ==
--- NOTE | 2025-06-17 11:05 | MM_ITS ---
PROCEDURE INFORMATION: Exam: MG Bilateral Screening 3D Mammography Exam date and time: 06/17/2025 11:14 AM Age: 79 years old Clinical indication: Screening examination TECHNIQUE: Imaging protocol: Bilateral Screening tomosynthesis and 2D mammography including computer-aided detection (CAD) when performed. COMPARISON: 1. MG MM DIG SCREENING MAMM BI W/CAD 05/25/2024 10:40 AM 2. MG MM DIG SCREENING MAMM BI W/CAD 05/24/2023 9:33 AM FINDINGS: MAMMOGRAPHY: Breast composition: There are scattered areas of fibroglandular density. Mass: None. Architectural distortion: None. Calcifications: No suspicious calcifications. Asymmetric density: None. Skin thickening: None. Axillary adenopathy: None. IMPRESSION: No mammographic evidence of malignancy. Annual screening is recommended unless otherwise clinically indicated. ASSESSMENT: BI-RADS Category 1: Negative.
== END 2025-06-17 23:59 | disposition home or self-care (01) ==
LOC: RAD 11:03
PROVIDERS: PCP Family Medicine; Visit Provider Family Medicine
DX: Z12.31 Encounter for screening mammogram for malignant neoplasm of breast (principal); R92.323 Mammographic fibroglandular density, bilateral breasts
CPT/HCPCS: 77063; 77067

== ENCOUNTER 2025-07-28 08:39 | Outpatient (CLI) | payer MEDICARE, OTHER, SELFPAY ==
--- OUTSIDE RECORDS SUMMARY | 2025-04-08 05:45 | XMS_ITS ---
Author Organization [facility] Address [address] [place] [id number] Care Team Providers Care Home School Teacher Name Role Phone MarthaCherrieRashi Primary Care Provider Allergies Allergen (clinical drug ingredient) Drug/Non Drug Allergy documented on EMR Reaction Allergy Type Onset Date Status lisinopril Lisinopril cough Drug Allergy Activ e Results Component Value Reference Range Notes P-Vitamin B12 Reviewed date:04/09/2025 12:50:42 PM Interpretation:Normal Performing Lab: Notes/Report: Test performed by [facility] [address] [place] [address] , [facility], [place] [address] Stanley Prado MD, Cooling Machine Operator CLIA: [id number] Vitamin B12 294 187-5665 pg/mL P-Comprehensive Metabolic Pa tika (CMP) Reviewed date:04/09/2025 12:50:58 PM Interpretation:glu 110, alk phos 122 Performing Lab: Notes/Report: Test performed by [facility] [address] [place], [place] [address] [place] Eddie [address], [place] [address] Stanley Prado MD, Cooling Machine Operator CLIA: [id number] Sodium 139 135-145 mmol/L Potassium 4.4 3.5-5.3 [...] Interpretation:Normal Performing Lab: Notes/Report: Test performed by [facility], [address] , [facility], [place] [address] Stanley Prado MD, Cooling Machine Operator CLIA: [id number] Cholesterol 182 <200 mg/dL Triglycerides 63 <150 [...] Interpretation:Normal Performing Lab: Notes/Report: Test performed by [facility] [address] [place] [address] , [place] [address] Stanley Prado MD, Cooling Machine Operator CLIA: [id number] TSH reflex to FT4 2.36 0.43-5.25 mU/L P-Microalbumin/Creatinine, R andom Urine Sample Reviewed date:04/09/2025 12:50:26 PM Interpretation:Normal Performing Lab: Notes/Report: Test performed by [facility] [address] [place] [address] , [place] [address] Stanley Prado MD, Cooling Machine Operator CLIA: [id number] Albumin/Creatinine Ratio, Urine 11 0-30 ug/m g Microalbumin, Urine, Random 0.6 Creatinine, Urine 52.2 REASON FOR VISIT 4 weeks Medications Medication SIG (Take, Route, Frequency, Duration) Notes Start Date End Date Status Diclofenac Sodium 1 % as directed Rattle Leak And Squeak Repairer ally four times a day as needed 03/11/2025 Activ e Irbesartan 150 MG 1 tablet Orally Once a day 03/11 Active QUEtiapine Fumarate 50 MG 1 tab(s) orall y once a day (in the evening); Duration: 90 days Active Vitamin B-12 1000 MCG 2 tab(s) orally once a day OTC 0 04/22/2020 Active Vitamin D (Ergocalciferol) 1.25 MG (24799 UT) Take 1 capsule by mouth once [...] 31.0-31.9,ad ult (Z68.31) Active confirmed Vital Signs Blood pressure systolic 120 mm Hg 04/08/20 25 Blood pressure diastolic 70 mm Hg 025 Heart Rate 72 /min 04/08/2025 Height 61 in 04/08/2025 Weight 168.0 lbs 04/08/2025 BMI 31.74 kg/m2 04/08/2025 Encounters Encounter Location Date Provider Diagnosis [facility] [address] [place], [place] [id number] 04/08/2025 Rashi Thomas Essential hypertensi on I10 [...] Follow Up: 6 Months, Reason: Provider Name:Rashi Roy ry, 10/11/2025 10:00:00 AM, [address], [place], [place], [id number], Progress Notes * Roopa HOLGUINEDOB: (79 yo F)Acc No.[id number]:04/08/2025 Progress Notes Patient: Roopa BAIRD Provider: Santosh Thomas M.D. :1945 A ge:79 Y S ex:Female Date:04/08/2025 Address:[address] [place] [address] [id number] Subjective: * Chief Complaints: * 1 [...] Hospitalization/Major Diagno stic Procedure: F all, Pneumothorax- [facility] ER 10/30/2020. * Family History: F [...] OTC, Taking Vitamin D (Ergocalciferol) 1.25 MG (59077 UT) Capsule Take 1 capsule by mouth [...] morbid obesity - E66.9 6 . B [place] 31.0-31.9,adult - Z68.31 Plan: * Treatment: Value [...] 12: 10:01 PM > [facility] 12:50:54 PM >pt informed ?LAB: P-Lipid [...] 12: 10:01 PM > labs are all satisfactory[facility] 04/09/2025 12:50:46 PM >pt informed ?LAB: P-TSH reflex to FT4 (Collection Date & Time - 04/08/2025 09:01 AM)? Normal* Value Reference Range T SH reflex to FT4 2.36 0.43-5.25 - mU/L * Judy Johns 04/09/2025 12: 10:01 PM > [facility] 04/09/2025 12:50:30 PM >pt informed 4.?Vitamin B12 deficiency?LAB: P-Vitamin B12 (Collection Date & Time - 04/08/2025 09:01 AM)?Normal* Value Reference Range V itamin B12 169 467-9416 - pg/mL * Judy Johns 04/09/2025 12: 10:01 PM > [facility] 04/09/2025 12:50:38 PM >pt informed 5.?Non morbid obesity? Continue Contrave Tablet Extended Release 12 Hour, 8-90 MG, 2 tabs, Orally, Two times a day.? * Procedure Codes: G 2211 Complex e/m visit add on, 3074F SYST BP LT 130 MM HG, 3078F DIAST BP < 80 MM HG * Follow Up: 6 Months * Images: Billing Information: * Visit Code: 93933 Office Visit, Est Pt., Level 4. * Procedure Codes: G2211 Complex e/m visit add on. 3074F SYST BP LT 130 MM HG. 3078F DIAST BP < 80 MM HG. * Electronic signature of Aruna Thomas MD on 07/28/2025 at 08:58 AM EDT Sign off status: Pending * Provider: Santosh Thomas M.D. Date: 0 04/08/2025 Generated for Jorge horvath/Dianne/eTransmitting on: 0 07/28/2025 08:58 AM EDT History and Physical Notes * [...]
--- OUTSIDE RECORDS SUMMARY | 2025-06-14 12:45 | XMS_ITS ---
[facility] Address [address] [place] [phone] Care Team Providers Care Brim Stretcher Name Role Phone Rashi Thomas Primary Care [...] Active Diclofenac Sodium 1 % as directed Grass Farmer ally four times a day as needed 03/11/2025 Activ e Vitamin D (Ergocalciferol) 1.25 MG (20685 UT) Take 1 capsule by mouth once [...] Orally Twice a day Active Vital Signs Blood pressure systolic 160 mm Hg 06/14/20 25 Blood pressure diastolic 80 mm Hg 025 Heart Rate 85 /min 06/14/2025 Height 61 in 06/14/2025 Weight 179 lbs 06/14/2025 BMI 33.82 kg/m2 06/14/2025 Encounters Encounter Location Date Provider Diagnosis [facility] [address] [facility] [address] [facility] [address] [place] [phone] 06/14/2025 Rashi Thomas Depression with anxi ety [...] 3 or 4 Weeks, Nathalia son: Provider Name:Rashi Roy ry, 10/11/2025 10:00:00 AM, [address] [facility] [address] [facility], [address], [place], [phone], Progress Notes * Roopa HOLGUINEDOB: (79 yo F)Acc No.[id number]:06/14/2025 Progress Notes Patient: Taylor GRETTABayron Roopa DONALD Provider: Santosh Thomas M.D. :1945 A ge:79 Y S ex:Female Date:06/14/2025 Address:[address] [place] [address] [id number] Subjective: * Chief Complaints: [...] Hospitalization/Major Diagno stic Procedure: F all, Pneumothorax- [facility] ER 10/30/2020. * Family History: F [...] OTC, Taking Vitamin D (Ergocalciferol) 1.25 MG (98428 UT) Capsule Take 1 capsule by mouth [...] G rooming : a dequate.?Eye contact : patrick suh. M ood : ness chao. H eart: R SR. Kirk ungs: c lear to auscultation. Assessment: * [...] * Images: Billing Information: * Visit Code: 29199 Office Visit, Est Pt., Level 3. * Procedure Codes: G2211 Complex e/m visit add on. * Electronic signature of Aruna Thomas MD on 07/28/2025 at 08:59 AM EDT Sign off status: Pending * Provider: Santosh Thomas M.D. Date: 0 06/14/2025 Generated for Jorge horvath/Dianne/eTransmitting on: 0 07/28/2025 08:59 AM EDT History and Physical Notes * [...]
--- OUTSIDE RECORDS SUMMARY | 2025-06-29 05:50 | XMS_ITS ---
Author Organization [facility] Address [address] [facility] [address] [facility] [address] [place] [id number] Care Team Providers Care Chief Crew Scheduler Name Role Phone Rashi Thomas Primary Care Provider REASON FOR VISIT due dexa Encounters Encounter Location Date Provider Diagnosis [facility] [address] [facility] [address] [facility] [address] [place] [id number] 06/29/2025 Rashi Thomas Encounter for screen ing for osteoporosis Z13.820 Assessments Encounter Date Diagnosis (ICD Code) Assessment Notes Treatment Notes Treatment Clinical Notes Section Notes 06/29/2025 Encounter for screening for osteoporosis (ICD-10 - Z13.820) Plan Of Treatment Next Appt Details Provider Name:Rashi Roy ry, 10/11/2025 10:00:00 AM, [address] [facility] [address] [facility], [address], [facility] [place], [phone], Progress Notes * HOLGUINRoopaANDIEDOB: (79 yo F)Acc No.[id number]:06/29/2025 Patient: Roopa BAIRD :1945 A ge:79 Y S ex:Female Address:[address] [place], [address] Subjective: * Chief Complaints: * D ue dexa * Medical History: * Surgical History: * Hospitalization/Major Diagno stic Procedure: * Medications: Objective: * Vitals: * Physical Examination: Assessment: * Assessment: 1. E ncounter for screening for osteoporosis - Z13.820 (Primary) Plan: * Treatment: * Procedure Codes: * true * Date: Generated for Jorge horvath/Dianne/Jey on: 0 07/28/2025 08:58 AM EDT
--- OUTSIDE RECORDS SUMMARY | 2025-07-12 07:00 | XMS_ITS ---
[facility] Organization [facility] Address [address] [place] [id number] Care Team Providers Care Parachute Accessories Attacher Name Role Phone Rashi Thomas Primary Care Provider [phone] Allergies Allergen (clinical drug ingredient) Drug/Non Drug Allergy documented on EMR Reaction Allergy Type Onset Date Status lisinopril Lisinopril cough Drug Allergy Activ e REASON FOR VISIT 4 weeks Medications Medication SIG (Take, Route, Frequency, Duration) Notes Start Date End Date Status Diclofenac Potassium 50 MG 1 tablet with food or milk as needed Orally Twice a day Active Irbesartan 150 MG 1 tablet Orally Once a day 03/11 Active Omeprazole 40 MG 1 cap(s) orally once a day; Duration: 90 days Active Vitamin D3 25 MCG 1 tab(s) orally once a day; Duration: 30 day(s) Active amLODIPine Besylate 5 MG 1 tablet Orally Once a day Active Atorvastatin Calcium 10 MG 1 tab(s) oral ly once a day; Duration: 90 days Active QUEtiapine Fumarate 50 MG 1 tab(s) orall y once a day (in the evening); Duration: 90 days Active Vitamin B-12 1000 MCG 2 tab(s) orally once a day OTC 0 04/22/2020 Active Vitamin D (Ergocalciferol) 1.25 MG (72142 UT) Take 1 capsule by mouth once a week; Duration: 90 Active Diclofenac Sodium 1 % as directed Help Desk Support Specialist ally four times a day as needed 03/11/2025 Activ e Reclast 5 MG/100ML 5 mg intravenously o nce a year 07/02/2017 Active Vitamin E 400 UNIT 1 cap(s) orally once a day Active Ibuprofen 600 MG 1 tab(s) orally ever y 12 hours as needed 09/26/2017 Active DULoxetine HCl 60 MG 1 capsule Orally On ce a day; Duration: 90 days 06/14/2025 Active Vital Signs Blood pressure systolic 122 mm Hg 07/12/20 25 Blood pressure diastolic 74 mm Hg 025 Heart Rate 85 /min 07/12/2025 Height 61 in 07/12/2025 Weight 171.6 lbs 07/12/2025 BMI 32.42 kg/m2 07/12/2025 Encounters Encounter Location Date Provider Diagnosis [facility] [address] [facility] [address] [place] [id number] 07/12/2025 Rashi Thomas Depression with anxi ety F41.8 and Arthritis of knee, right M17.11 Assessments Encounter Date Diagnosis (ICD Code) Assessment Notes Treatment Notes Treatment Clinical Notes Section Notes 07/12/2025 Depression with anxiety (ICD-10 - F41.8) 07/12/2025 Arthritis of knee, right (ICD-10 - M17.11) Plan Of Treatment Medication Medication Name Sig Start Date Stop Date Notes Diclofenac Potassium 50 MG 1 tablet with food or milk as needed Orally Twice a day DULoxetine HCl 60 MG 1 capsule Orally On ce a day; Duration: 90 days 06/14/2025 Next Appt Details Follow Up: as scheduled,and prn, Reason: Provider Name:Rashi Roy ry, 10/11/2025 10:00:00 AM, [address] [facility], [address], [place], [id number], Progress Notes * Roopa HOLGUINEDOB: (79 yo F)Acc No.[id number]:07/12/2025 Progress Notes Patient: Roopa BAIRD Provider: Santosh Thomas M.D. :1945 A ge:79 Y S ex:Female Date:07/12/2025 Address:[address] [place] [address] [id number] Subjective: * Chief Complaints: * 1 . 4 weeks. * HPI: P sychology: 79 year old female presents with c/o depression P t here to f/u on depression with anxiety. Pt started on Duloxetine 60mg on 06/14/2025 and states she is doing better since starting medication. Pt does need rf today. * ROS: G ASTROENTEROLOGY: no N ausea. n o V omiting. U ROLOGY: no D ifficulty urinating. n o B lood in urine. * Medical History: I nsomnia, Hyperlipidemia, Vitamin D Deficiency, Colon Polyps, Osteoporosis, Dx: May 2017, Hemorrhoids, Basal cell carinoma, left cheek, s/p excision 2021, Constipation. * Surgical History: T ubal Ligation, bilateral 1976, Hemicolectomy and Cholecystectomy 1976, Gastric Bypass 1983, Hysterectomy, total 1995, Hammer Toe Repair , colonoscopy: 2016, 2021 . * Hospitalization/Major Diagno stic Procedure: F all, Pneumothorax- [facility] ER 10/30/2020. * Family History: F ather: , diagnosed with Cancer. M other: . S iblings: alive, diagnosed with Hypertension. C hildren: alive. 2 sister(s) . 1 son(s) , 1 daughter(s) - healthy. .? Father - Lung Cancer. * Social History: C URRENT TOBACCO USE: No S moking Status: P atient does NOT smoke, F ormer Smoker:?Yes Pt states that she smoked for 2 years and it was 30 years ago (2016), S econd hand smoke exposure: Y es and children. * Medications: T aking Vitamin D3 25 MCG Tablet 1 tab(s) [...] OTC, Taking Vitamin D (Ergocalciferol) 1.25 MG (29495 UT) Capsule Take 1 capsule by mouth once a week , Taking Diclofenac Sodium 1 % Gel as directed Externally four times a day as needed , Taking Atorvastatin Calcium 10 MG Tablet 1 tab(s) orally once a day , Taking Omeprazole 40 MG Capsule Delayed Release 1 cap(s) orally once a day , Taking DULoxetine HCl 60 MG Capsule Delayed Release Particles 1 capsule Orally Once a day , Taking amLODIPine Besylate 5 MG Tablet 1 tablet Orally Once a day , Taking Irbesartan 150 MG Tablet 1 tablet Orally Once a day , Taking Diclofenac Potassium 50 MG Tablet 1 tablet with food or milk as needed Orally Twice a day , Medication List reviewed and reconciled with the patient * Allergies: L isinopril: cough - Side Effects. Objective: * Vitals: W t: 171.6, Temp: 98.1, BP: 122/74, HR: 85, Nurse: bassam, Ht: 61, BMI:32.42. * Examination: P sychology: General Appearance: N AD. G rooming : a dequate.?Eye contact : n ormal. M ood : p leasant. H eart: R SR. L ungs: c lear to auscultation. Assessment: * Assessment: 1. D epression with anxiety - F41.8 (Primary) 2 . A rthritis of knee, right - M17.11 Plan: * Treatment: 2. A rthritis of knee, right Continue Diclofenac Potassium Tablet, 50 MG, 1 tablet with food or milk as needed, Orally, Twice a day. * Procedure Codes: G 2211 Complex e/m visit add on, 1036F TOBACCO NON-USER, G8783 BP SCR PRFRM RCMDD DEFIND SCR INTVL, G8752 MOST RECENT SYSTOLIC BP < 140MM HG, G8754 MOST RECENT DIASTOLIC BP < 90MM HG * Follow Up: a s scheduled,and prn * Images: Billing Information: * Visit Code: 08834 Office Visit, Est Pt., Level 3. * Procedure Codes: G2211 Complex e/m visit add on. 1036F TOBACCO NON-USER. G8783 BP SCR PRFRM RCMDD DEFIND SCR INTVL. G8752 MOST RECENT SYSTOLIC BP < 140MM HG. G8754 MOST RECENT DIASTOLIC BP < 90MM HG. * Electronic signature of Aruna Thomas MD on 07/28/2025 at 08:59 AM EDT Sign off status: Pending * Provider: Santosh Thomas M.D. Date: 0 07/12/2025 Generated for Jorge horvath/Dianne/Jey on: 0 07/28/2025 08:59 AM EDT History and Physical Notes * HPI (History of Present Illness) Category Sub-Category Detail Notes Category Not es Psychology depression Pt here to f/u o n depression with anxiety. Pt started on Duloxetine 60mg on 06/14/2025 and states she is doing better since starting medication. Pt does need rf today Examination Category Sub-Category Detail Notes Category Not es Psychology Heart: RSR Lungs: clear to auscultatio n General Appearance: NAD Grooming : adequate Eye contact : normal Mood : pleasant
--- NOTE | 2025-07-28 08:42 | XR_ITS ---
FINAL REPORT TECHNIQUE: Bone densitometry calculations of the lumbar spine and bilateral hips were obtained. CLINICAL HISTORY: SCREENING COMPARISON: None FINDINGS: Using L1-4, the bone mineral density of the spine is 1.130 g/cm2, corresponding to T-score of 0.8. Using the left hip, the bone mineral density of the femoral neck is 0. 0.625 g/cm2, corresponding to a T-score of -2.0. Using the right hip, the bone mineral density of the femoral neck is 0.603 g/cm?, corresponding to a T-score of -2.2. NOTE: T-score: Standard deviation compared with peak bone mass of young adult mean. *Following the recommendations of the International Society of Bone densitometry, classification of hip BMD is based on the lower of two T-scores; total hip or femoral neck. IMPRESSION: Diminished bone mineral density of the bilateral hips consistent with osteopenia. Normal bone mineral density of the lumbar spine. However, this may be artificially elevated secondary to bony sclerosis in the lumbar spine. Reviewed, Interpreted and Dictated by Alexis Valdovinos MD Transcribed by Elisabeth Rosario Authenticated and [facility]
--- OUTSIDE RECORDS SUMMARY | 2025-07-28 08:59 | XMS_ITS | Patient Health Record ---
Author Organization [facility] Address [address] [place] [id number] Care Team Providers Care Radiophone Operator Name Role Phone Martha Rashi Primary Care Provider Kimo Ballard [phone] Allergies Allergen (clinical drug ingredient) Drug/Non Drug Allergy documented on EMR Reaction Allergy Type Onset Date Status lisinopril Lisinopril cough Drug Allergy Activ e Results Component Value Reference Range Notes P-Vitamin B12 Reviewed date:09/10/2024 10:21:00 AM Interpretation:259 Performing Lab: Notes/Report: Test performed by [facility] [address] [place], [place] [address] [place] , [address], [place] [address] Stanley Prado MD, Senior Mobile Developer CLIA: [id number] Vitamin B12 784 751-2068 pg/mL P-Comprehensive Metabolic Pa tika (CMP) Reviewed date:09/10/2024 10:21:00 AM Interpretation:gluc 108, alk phos 124 Performing Lab: Notes/Report: Test performed by [facility] [employer] [place] , [address], [place] [address] Stanley Prado MD, Senior Mobile Developer CLIA: [id number] Sodium 139 135-145 mmol/L Potassium 4.8 3.5-5.3 [...] 205 Performing Lab: Notes/Report: Test performed by [facility], [address] , [place] [address] Stanley Prado MD, Senior Mobile Developer CLIA: [id number] Cholesterol 205 <200 mg/dL Triglycerides 56 <150 [...] Results: 95 Units: mg/dL % Change: - P-TSH reflex to FT4 Reviewed date:09/10/2024 10:21:00 AM Interpretation: Normal Performing Lab: Notes/Report: Test performed by [facility] [address] , [address], [place] [address] Stanley Prado MD, Senior Mobile Developer CLIA: [id number] TSH reflex to FT4 1.63 0.43-5.25 mU/L P-Vitamin D 25-Hydroxy Reviewed date:09/10/2024 10:21:00 AM Interpretation: Normal Performing Lab: Notes/Report: Test performed by [facility] [address] , [place] [address] Stanley Prado MD, Senior Mobile Developer CLIA: [id number] Vitamin D 25-Hydroxy 50.9 30.0-100.0 ng/mL Interpretation of Vitamin D 25 OH: < 20 ng/mL - Deficiency 20 - 29 ng/mL - Insufficiency 30 - 100 ng/mL - Sufficiency > 100 ng/mL - Super-therapeutic- toxicity may occur above this level. Clinical correlation required. P-Vitamin B12 Reviewed date:04/09/2025 12:50:42 PM Interpretation:Normal Performing Lab: Notes/Report: Test performed by [facility] [address] , [address], [place] [id number] Stanley Prado MD, Senior Mobile Developer CLIA: [id number] Vitamin B12 746 475-0039 pg/mL P-Comprehensive Metabolic Pa tika (CMP) Reviewed date:04/09/2025 12:50:58 PM Interpretation:glu 110, alk phos 122 Performing Lab: Notes/Report: Test performed by [facility] [address] [place] [address] , [address], [place] [address] Stanley Prado MD, Senior Mobile Developer CLIA: [id number] Sodium 139 135-145 mmol/L Potassium 4.4 3.5-5.3 [...] Interpretation:Normal Performing Lab: Notes/Report: Test performed by [facility], [address] , [address], [place] [address] Stanley Prado MD, Senior Mobile Developer CLIA: [id number] Cholesterol 182 <200 mg/dL Triglycerides 63 <150 [...] Interpretation:Normal Performing Lab: Notes/Report: Test performed by [facility] [address] [place] [address] , [address], [place] [address] Stanley Prado MD, Senior Mobile Developer CLIA: [id number] TSH reflex to FT4 2.36 0.43-5.25 mU/L P-Microalbumin/Creatinine, R andom Urine Sample Reviewed date:04/09/2025 12:50:26 PM Interpretation:Normal Performing Lab: Notes/Report: Test performed by [facility] [address] , [address], [place] [address] Stanley Prado MD, Senior Mobile Developer CLIA: [id number] Albumin/Creatinine Ratio, Urine 11 0-30 ug/m g Microalbumin, Urine, Random 0.6 Creatinine, Urine 52.2 X ray : Knee, right Reviewed date:03/12/2025 08:29:57 AM Interpretation: Performing Lab: Notes/Report: P-Vitamin B12 Reviewed date:10/29/2024 08:30:57 AM Interpretation: Performing Lab: Notes/Report: Test performed by [facility] [address] , [address], [place] [address] Stanley Prado MD, Senior Mobile Developer CLIA: [id number] Vitamin B12 125 259-3683 pg/mL Mammogram Reviewed date:06/23/2025 04:11:34 PM Interpretation:Negative Performing Lab: Notes/Report: Negative result neg Reason For Referral Diagnosis 1 Arthritis of knee, r ight (M17.11) [facility] Referring Provider First Name Rashi Referring Provider Last Name Siler Referring Provider [facility]erred Provider Fernando Aranda Referred Provider Specialty Orthopedic S urgery General Notes Katie Ruth 2024 10:27:26 AM > 03/25/2025 at 10:15am; patient informed Referral Priority Routine Medications Medication SIG (Take, Route, Frequency, Duration) Notes Start Date End Date Status Vitamin E 400 UNIT 1 cap(s) orally once a day Active Irbesartan 150 MG 1 tablet Orally Once a day 03/11 Active Ibuprofen 600 MG 1 tab(s) orally ever y 12 hours as needed 09/26/2017 Active Diclofenac Potassium 50 MG 1 tablet with food or milk as needed Orally Twice a day Active Reclast 5 MG/100ML 5 mg intravenously o nce a year 07/02/2017 Active Atorvastatin Calcium 10 MG 1 tab(s) oral ly once a day; Duration: 90 days Active Omeprazole 40 MG 1 cap(s) orally once a day; Duration: 90 days Active Vitamin D3 25 MCG 1 tab(s) orally once a day; Duration: 30 day(s) Active amLODIPine Besylate 5 MG 1 tablet Orally Once a day Active QUEtiapine Fumarate 50 MG 1 tab(s) orall y once a day (in the evening); Duration: 90 days Active DULoxetine HCl 60 MG 1 capsule Orally On ce a day; Duration: 90 days 06/14/2025 Active Vitamin B-12 1000 MCG 2 tab(s) orally once a day OTC 0 04/22/2020 Active Vitamin D (Ergocalciferol) 1.25 MG (11335 UT) Take 1 capsule by mouth once a week; Duration: 90 Active Diclofenac Sodium 1 % as directed Director Of Rooms ally four times a day as needed 03/11/2025 Activ e Immunizations Vaccine Route Administration Date Status Comme [...] Status Risk Notes Problem Vitamin D deficiency (86207936) Vitamin D deficiency (E55.9) Active confirmed Problem Vitamin B12 deficiency (498763175) Vitamin B12 deficiency (E53.8) Active confirmed Problem Hypercalcemia (79484413) Hypercalcemia (E83.52) Active confirmed Problem Essential hypertension (00747267) Essential hypertension (I10) Active confirmed Problem Mixed anxiety and depressive disorder (808904390) Depression with anxiety (F41.8) Active confirmed Problem BMI 30+ - obesity (684812812) BMI 32.0-32.9,adult (Z68.32) Active confirmed Problem Memory loss (74807276) Memory loss (R41.3) Active confirmed Problem Primary insomnia (9248181) Primary insomnia (F51.01) Active confirmed Problem Age-related osteoporosis (558337982) Age-related osteoporosis without current pathological fracture (M81.0) Active confirmed Problem Abnormal findings on diagnostic imaging of breast (952755151) Other abnormal and inconclusive findings on diagnostic imaging of breast (R92.8) Active confirmed Problem History of polyp of colon (situation) (349637414) History of colon polyps (Z86.010) Active confirmed Problem Constipation (78169735) Constipation, unspecified constipation type (K59.00) Active confirmed Problem Osteoporosis (52066120) Osteoporosis (M81.0) Active confirmed Problem Adjustment disorder with anxious mood (10324407) Adjustment disorder with anxious mood (F43.22) Active confirmed Problem Body mass index 30.0 0 to 34.99 (420069600937216) BMI 31.0-31.9,adult (Z68.31) Active confirmed Problem Pure hypercholesterolemia (354372728) Pure hypercholesterolemia (E78.00) Active confirmed Problem Chronic idiopathic constipation (09032128) Chronic idiopathic constipation (K59.04) Active confirmed Problem Obesity (316062651) Non morbid o besity (E66.9) Active confirmed Problem Arthritis of right knee (1346193567144745) Arthritis of knee, right (M17.11) Active confirmed Problem Pica (26938963) Pica 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) Active confirmed Problem Gastroesophageal reflux disease (214650426) Gastroesophageal reflux disease, unspecified whether esophagitis present (K21.9) Active confirmed Vital Signs Heart Rate 85 /min 07/12/2025 Blood pressure diastolic 74 mm Hg 07/12/2025 Height 61 in 07/12/2025 Blood pressure systolic 122 mm Hg 07/12/2025 Weight 171.6 lbs 07/12/2025 BMI 32.42 kg/m2 07/12/2025 Encounters Encounter Location Date Provider Diagnosis [facility] [address] [place], [place] [id number] 09/09/2024 Rashi Siler Pure hypercholestero lemia E78.00 ; Vitamin D deficiency E55.9 ; Primary insomnia F51.01 ; Vitamin B12 deficiency E53.8 ; Depression with anxiety F41.8 ; Encounter for immunization Z23 and Non morbid obesity E66.9 [facility] [address] [place], [place] [id number] 10/28/2024 Kimo Ballard Vitamin B12 deficien cy E53.8 [facility] [address] [place], [place] [id number] 03/11/2025 Rashi Siler Essential hypertensi on I10 ; Depression with anxiety F41.8 ; Non morbid obesity E66.9 ; Pure hypercholesterolemia E78.00 ; Vitamin D deficiency E55.9 ; Vitamin B12 deficiency E53.8 ; Age-related osteoporosis without current pathological fracture M81.0 ; Gastroesophageal reflux disease, unspecified whether esophagitis present K21.9 ; Acute pain of right knee M25.561 and BMI 32.0-32.9,adult Z68.32 [facility] [address] [place], [place] [id number] 04/08/2025 Rashi Siler Essential hypertensi on I10 ; Depression with anxiety F41.8 ; Pure hypercholesterolemia E78.00 ; Vitamin B12 deficiency E53.8 ; Non morbid obesity E66.9 and BMI 31.0-31.9,adult Z68.31 [facility] [address] [place], [place] [id number] 06/14/2025 Rashi Siler Depression with anxi ety F41.8 and Essential hypertension I10 [facility] [address] [place], [place] [id number] 07/12/2025 Rashi Siler Depression with anxi ety F41.8 and Arthritis of knee, right M17.11 [facility] [address] [place], [place] [id number] 09/10/2024 Rashi Siler Vitamin B12 deficien cy E53.8 [facility] [address] [place], [place] [id number] 03/12/2025 Rashi Siler Acute pain of right knee M25.561 and Arthritis of knee, right M17.11 [facility] [address] [place], [place] [id number] 04/08/2025 Rashi Siler [facility] [address] [place], [place] [id number] 06/07/2025 Rashi Siler [facility] [address] [place], [place] [id number] 06/07/2025 Rashi Siler [facility] [address] [place], [place] [id number] 06/29/2025 Rashi Siler Encounter for screen ing for osteoporosis Z13.820 [facility] [address] [place], [place] [id number] 07/07/2025 Rashi Siler Assessments Encounter Date Diagnosis (ICD Code) Assessment [...] Depression with anxi ety (ICD-10 - F41.8) 06/29/2025 Encounter for screen ing for osteoporosis (ICD-10 - Z13.820) 07/12/2025 Depression with anxi ety (ICD-10 - F41.8) 07/12/2025 Arthritis of knee, r ight (ICD-10 - M17.11) 04/08/2025 Pure hypercholesterolemia (ICD-10 - E78.00) 03/11/2025 [...] Treatment Pending Test Test Name Order Date Bone density 07/07/2025 colonoscopy 04/07/2024 Next Appt Details Provider Name:Rashi Roy ry, 10/11/2025 10:00:00 AM, [address] [facility] [address], [place], [place], [id number], Insurance Providers Payer Name Payer Address Payer Phone Subscriber Number Group Number Insured Name Patient Relationship to Insured Coverage Start Date Coverage End Date MEDICARE PART B [address] [address] [place] [address] [id number] EZIO Roopa Self - patient is the insured [employer] SUPPLEMENT [address] [address] [place], [place] [id number] Lissa HOLGUINa Self - patient is the insured Medical (General) History Medical History History ICD Code Insomnia Hyperlipidemia Vitamin D Deficiency Colon Polyps Osteoporosis, Dx: May 2017 Hemorrhoids Basal cell carinoma, left cheek, s/p exc ision 2021 Constipation Surgical History Surgery Date(Month/Year) Tubal Ligation, bilateral 1976 Hemicolectomy and Cholecystectomy 1976 Gastric Bypass 1983 Hysterectomy, total 1995 Hammer Toe Repair colonoscopy: 2021 Hospitalization History Reason Date(Month/Year) Fall, Pneumothorax- [facility] 10/30/2020
== END 2025-07-28 23:59 | disposition home or self-care (01) ==
LOC: RAD 08:40
PROVIDERS: PCP Family Medicine; Visit Provider Family Medicine
DX: M85.852 Other specified disorders of bone density and structure, left thigh (principal); M85.851 Other specified disorders of bone density and structure, right thigh; M81.0 Age-related osteoporosis without current pathological fracture; Z78.0 Asymptomatic menopausal state
CPT/HCPCS: 77080